=== PATIENT | male | born 1960 | race African-American/Black ===

== ENCOUNTER 2019-05-02 21:45 | Inpatient (IN) | payer OTHER ==
[~2019-05-02 21:45] MED LIST: Iopamidol 370 76% 100 ML VIAL ONE
[2019-05-02] MEDS ORDERED: Ondansetron PF 4 MG/2 ML Vial ONE (22:20)
[2019-05-02] MEDS ORDERED: Morphine 4 MG/ML VIAL ONE (22:20)
[2019-05-02 22:52] LABS: Hemoglobin 13.7 g/dL (14.0-18.0); Mean Corpuscular HGB CONC 31.6 g/dL (32.0-36.0); Mean Corpuscular Hemoglobin 25.6 pg (27.0-31.0); Mean Corpuscular Volume 81.1 fL (78.0-98.0); Mean Platelet Volume 7.9 fL (7.4-10.4); Platelet Count 232 thou/uL (130-400); RBC Distribution Width 12.2 % (11.5-14.5); Red Blood Cell (RBC) Count 5.35 mill/uL (4.70-6.10); White Blood Cell (WBC) Count 18.6 thou/uL (4.8-10.8)
[2019-05-02] MEDS ORDERED: Cefepime 2 GM VIAL ONE (23:04)
--- NOTE | 2019-05-02 23:10 | RAD ---
Chest AP view INDICATION: Sepsis and hypotension COMPARISON: July 12, 2016 FINDINGS: Lungs:Stable bibasilar linear opacities suspicious for persistent atelectasis and/or scarring. No con solidation demonstrated. Cardiac silhouette:The cardiomediastinal silhouette appears within normal limits. Pulmonary vasculature:Normal Pleural spaces:No pleural effusion or pneumothorax is demonstrated. Upper abdomen:Stable elevation the right hemidiaphragm. Osseous structures: No acute osseous abnormality. Additional findings:None. IMPRESSION: No acute cardiopulmonary abnormality.
[2019-05-02 23:11] LABS: Band 2 % (5-11); Eosinophils 4 % (0-10); Lymphocytes 7 % (21-51); MDiff Complete? YES; Monocytes 8 % (0-10); Neutrophil 79 % (42-75); Platelet Morphology Comment Appears Adequate; RBC Morphology Normal
[2019-05-02 23:12] LABS: Bilirubin Negative (Negative); Blood, Urine Negative (Negative); Clarity Clear (Clear); Glucose, Urine (Dipstick) Normal (Negative); Leukocyte 250 Leu/uL (Negative); Mucous/LPF Rare LPF (<2+); Nitrite Negative (Negative); Protein, Urine (Dipstick) 20 mg/dL (Neg-Trace); Renal Epithelial 0-3 HPF (None Seen); Squamous Epithelial 0-3 HPF (0-3); Urobilinogen 3 mg/dL (Less than 2)
[2019-05-02 23:14] LABS: ALT (SGPT) 33 U/L (8-55); AST (SGOT) 19 U/L (5-34); Albumin 3.1 g/dL (3.5-5.0); Alkaline Phosphatase 79 U/L (40-110); Anion Gap 12 mmol/L (10-20); BUN (Urea Nitrogen) 18 mg/dL (8.4-25.7); Bilirubin, Total 0.6 mg/dL (0.2-1.2); Calc. Creatinine Clearance 0 mL/min (70-130); Calcium 7.6 mg/dL (7.8-10.44); Carbon Dioxide 20 mmol/L (22-29); Chloride 107 mmol/L (98-107); Estimated GFR-MDRD 63; Glucose 96 mg/dL (70-105); Potassium 3.3 mmol/L (3.5-5.1); Protein, Total 6.1 g/dL (6.0-8.3); Sodium 136 mmol/L (136-145)
[2019-05-02 23:19] LABS: Bacteria/HPF Rare-Few HPF (None Seen)
[2019-05-02 23:20] LABS: White Blood Cell Cast 0-3 LPF (None Seen)
--- NOTE | 2019-05-02 23:51 | CT ---
CT OF THE ABDOMEN AND PELVIS WITH IV CONTRAST INDICATION: Evaluate for intra-abdominal abscess history of necrotizing fasciitis of the left aspect of his abdomen COMPARISON: None FINDINGS: ABDOMEN: Lung bases: There is bibasilar atelectasis, right greater than left. Liver: No focal lesion. Gallbladder: Mildly distended Pancreas: Normal. Adrenal glands: Normal. Spleen: Normal. Kidneys and ureters: Normal. No hydronephrosis. Vasculature: There are mild vascular calcifications seen involving the visualized vasculature. Lymph nodes:No lymphadenopathy. Free fluid in abdomen:No free fluid is evident. PELVIS: Small and large bowel: Colonic diverticulosis. Mild amount of retained stool within the colon. Small bowel is of normal caliber. Appendix:Normal Bladder: Mild wall thickening Rectal and perirectal soft tissues:Normal. Reproductive structures: Normal. Free fluid in pelvis: No free fluid is evident. Lymphadenopathy pelvis: No lymphadenopathy is evident. Osseous structures: No acute osseous abnormality. No destructive osteolytic or osteoblastic lesion i s identified. There is scattered degenerative and osteoarthritic changes. Soft tissues:There is skin thickening with reticulation overlying the hips bilaterally and along the posterior lateral aspect of the torso which is nonspecific. IMPRESSION: 1. No evidence of acute intra-abdominal abscess. 2. Nonspecific mild skin thickening and reticulation overlying the hips and posterior lateral aspect of the torso.
--- NOTE | 2019-05-03 01:01 | PDOC.FPRHP ---
- History of Present Illness Chief Complaint: Rash History of Present Illness: 59[facility] M pt [facility] with complaint of erythematous rash on abdomen and bilateral lower legs for 2 weeks. States he has also had fever, body aches, and chills. Hx of necrotizing fasciitis infection to left abdomen and inguinal region requiring surgical excision. Pt states he has already been on oral antibiotics although he cannot recall which abx with was. States that he had a short period of improvement after starting them but since finishing has had a worsening in his sx. Pt complains of fevers and chills throughout this period of time. - Allergies/Adverse Reactions Allergies Allergy/AdvReac Type Severity Reaction Status Date / Time aspirin Allergy Verified 05/03/19 03:25 clindamycin Allergy Nausea Verified 05/03/19 03:25 ibuprofen [From Motrin] Allergy Verified 05/03/19 03:25 Sulfa (Sulfonamide Allergy Hives Verified 05/03/19 03:25 Antibiotics) - Home Medications Medication Instructions Recorded Confirmed Type Clopidogrel Bisulfate [Plavix] 75 mg PO DAILY 05/03/19 05/03/19 History DULoxetine [Cymbalta] 30 mg PO BID 05/03/19 05/03/19 History diphenhydrAMINE [Benadryl] 50 mg PO BID 05/03/19 05/03/19 History risperiDONE [Risperdal] 1 tab PO DAILY 05/03/19 05/03/19 History - History PMHx: CHF, DM (diet controlled), Hep C, HTN, COPD, ANGLE, depression PSHx: Necrotizing fasciitis FHx: Non contributory Social: Pt has been an inmate for a number of years - Review of Systems General: reports: fever/chills. denies: weight/appetite/sleep changes Eyes: denies: vision changes, other ENT: denies: rhinorrhea, other Respiratory: reports: cough (chronic). denies: shortness of breath Cardiovascular: denies: chest pain, edema Gastrointestinal: denies: nausea, vomiting, diarrhea Skin: reports: rashes Musculoskeletal: reports: pain, swelling Neurological: denies: weakness, other Psychological: denies: depression, other - Vital signs BP: 91/57, Pulse: 106, Resp: 17, Pain: 6, O2 sat: 98 on Room Air - Physical Exam Constitutional: NAD, awake, alert and oriented, well developed HEENT: normocephalic and atraumatic, EOMI, grossly normal vision, grossly normal hearing, MMM Neck: supple, FROM Heart: normal S1/S2 -Heart: Tachycardic -Lungs: Diffuse mild expiratory wheezes, good air movement Abdomen: soft, bowel sounds present Neurological: no focal deficit, CN II-XII intact -Skin: Extensive erythematous rash to majority of pt's thorax extending to his lower extremities just below his knees. Areas of folliculitis with scattered draining pustules. Tender to touch. Heme/Lymphatic: no unusual bruising or bleeding, no purpura Psychiatric: normal mood and affect, intact recent and remote memory FMR H&P: Results - Labs Result Diagrams: 05/03/19 06:37 05/03/19 06:37 Lab results: WBC 18.6 thou/uL (4.8-10.8) H 05/02/19 22:44 Hgb 13.7 g/dL (14.0-18.0) L 05/02/19 22:44 Hct 43.4 % (42.0-52.0) 05/02/19 22:44 MCV 81.1 fL (78.0-98.0) 05/02/19 22:44 Plt Count 232 thou/uL (130-400) 05/02/19 22:44 Band Neuts % (Manual) 2 % (5-11) L 05/02/19 22:44 ESR Westergren 14 mm/hr (Less than 20) 05/02/19 22:44 Sodium 136 mmol/L (136-145) 05/02/19 22:44 Potassium 3.3 mmol/L (3.5-5.1) L 05/02/19 22:44 Chloride 107 mmol/L (98-107) 05/02/19 22:44 Carbon Dioxide 20 mmol/L (22-29) L 05/02/19 22:44 BUN 18 mg/dL (8.4-25.7) 05/02/19 22:44 Creatinine 1.39 mg/dL (0.7-1.3) H 05/02/19 22:44 Glucose 96 mg/dL (70-105) 05/02/19 22:44 Lactic Acid 2.7 mmol/L (0.5-2.2) H 05/02/19 22:44 Calcium 7.6 mg/dL (7.8-10.44) L 05/02/19 22:44 Total Bilirubin 0.6 mg/dL (0.2-1.2) 05/02/19 22:44 AST 19 U/L (5-34) 05/02/19 22:44 ALT 33 U/L (8-55) 05/02/19 22:44 Alkaline Phosphatase 79 U/L (40-110) 05/02/19 22:44 C-Reactive Protein 6.79 mg/dL (= or < 0.5) H 05/02/19 22:44 Serum Total Protein 6.1 g/dL (6.0-8.3) 05/02/19 22:44 Albumin 3.1 g/dL (3.5-5.0) L 05/02/19 22:44 Urine Ketones Negative mg/dL (Negative) 05/02/19 22:55 Urine Blood Negative (Negative) 05/02/19 22:55 Urine Nitrite Negative (Negative) 05/02/19 22:55 Ur Leukocyte Esterase 250 Flaca/uL (Negative) A 05/02/19 22:55 Urine RBC 7-10 HPF (0-3) A 05/02/19 22:55 Urine WBC 11-20 HPF (0-3) A 05/02/19 22:55 Ur Squamous Epith Cells 0-3 HPF (0-3) 05/02/19 22:55 Urine Bacteria Rare-Few HPF (None Seen) 05/02/19 22:55 FMR H&P: A/P - Problem List (1) COPD (chronic obstructive pulmonary disease) Current Visit: Yes Status: Acute (2) CHF (congestive heart failure) Current Visit: Yes Status: Acute Code(s): I50.9 - HEART FAILURE, UNSPECIFIED (3) Cellulitis Current Visit: Yes Status: Acute Code(s): L03.90 - CELLULITIS, UNSPECIFIED (4) Hx of necrotising fasciitis Current Visit: Yes Status: Acute Code(s): Z87.39 - PERSONAL HISTORY OF DISEASES OF THE MS SYS AND CONN TISS (5) Hypotension Current Visit: Yes Status: Acute (6) Sepsis Current Visit: Yes Status: Acute Code(s): A41.9 - SEPSIS, UNSPECIFIED ORGANISM - Plan Cellulitis w/ Sepsis- Hx of nec fasciitis - CT scan w/o signs of fluid collection or subq air - Received vanc and cefepime in ED - Transitioned to vanc and zosyn - 3L IVF in ED - WBC 18.6, Lact 2.7, continue to trend - Consider surgery consult Hypotension - Responsive to fluids in ED - Continue IVF resuscitation - Hold anti-hypertensives CHF - Reported hx - Will monitor w/ IVF COPD - Continue home regimen Diet: Regular IVF: LR @ 120 Dispo: Admit to medical inpt for IV abx. Expected LOS >48hr FMR H&P: Upper Level - Plan Date/Time: 05/03/19 0059 IWes MD, have evaluated this patient and agree with findings/plan as outlined by internal affairs commander resident. Pertinent changes/additions are listed here. Oneal Maher is a 59 year old M with a PMH of DM2, HTN, HLD, COPD and CHF who [facility] with a 2 week history of worsening redness, pain, and swelling to skin of bilateral flanks down bilateral extremities and perineum. Patient states that he was given an oral antibiotic close to the onset of symptoms and initially thought it was improving but since finishing the antibiotic about a week ago, his symptoms have worsened. He has developed drainage of purulent discharge from the perineum as well. He has had associated fevers and chills during the last several days. Upon admission to the ED, vitals were BP 92/54, RR 18, HR 103, T 98.1, O2 sat 99% on RA. Labs were significant for WBC count of 18.6 with left shift, Cr 1.39, Lactic acid of 2.7, CRP 6.7, ESR 14. CXR was negative, CT abd/pelv showed no abscess or subcutaneous air, mild thickening over hip and posterior aspect of torso. On exam, patient has TTP and erythema over bilateral flanks, down bilateral extremities, and the perineum but dried, purulent drainage in the perineum. No obvious crepitus. Admitting patient to inpatient medical floor for sepsis 2/2 cellulitis. LRINEC score of 1 makes necrotizing fasciitis less likely but still not completely ruled out, will consider general surgery consultation for evaluation in the morning. Consult wound care. Blood cultures pending. Patient's BPs have been stable since admission with MAPs greater than 65. Continue empiric antibiotics, Vancomycin and Zosyn to get addition anaerobic coverage. Anticipate hospital stay > 48 hours and d/c back to [facility] after admission. Please see internal affairs commander note above for full H&P, which I have reviewed and agree with. PCP: [facility] Call Code Status: Full Code VTE PPx: Lovenox
[2019-05-03] MEDS ORDERED: Fentanyl 100 MCG/2 ML VIAL ONE (02:17)
[2019-05-03] MEDS ORDERED: Ondansetron PF 4 MG/2 ML Vial IVP PRN (02:47)
[2019-05-03] MEDS ORDERED: Dextrose 50% Abboject 50 ML SYRINGE SLOW IVP PRN (02:47)
[2019-05-03] MEDS ORDERED: Dextrose 5% in Water 1,000 ML IV PRN (02:47)
[2019-05-03] MEDS: Lactated Ringer's 1,000 ML IV SCH ×3 (03:55→18:06)
[2019-05-03 05:48] LABS: Lactic Acid 6.1 mmol/L (0.5-2.2)
[2019-05-03] MEDS: Piperacillin/Tazobactam 4.5 GM in Sodium Chloride 0.9% 100 ML IVPB SCH ×3 (05:53→21:48)
[2019-05-03 05:56] LABS: BUN (Urea Nitrogen) 16 mg/dL (8.4-25.7); Calc. Creatinine Clearance 0 mL/min (70-130); Calcium 7.4 mg/dL (7.8-10.44); Carbon Dioxide 12 mmol/L (22-29); Estimated GFR-MDRD 74; Glucose 125 mg/dL (70-105)
[2019-05-03] MEDS ORDERED: Lactated Ringer's 500 ML IV SCH ×2 (06:00→23:00)
[2019-05-03] MEDS: Acetaminophen 325 MG TAB PO PRN ×3 (06:06→19:58)
[2019-05-03 06:51] LABS: Hemoglobin 13.8 g/dL (14.0-18.0); Mean Corpuscular HGB CONC 31.6 g/dL (32.0-36.0); Mean Corpuscular Hemoglobin 26.4 pg (27.0-31.0); Mean Corpuscular Volume 83.6 fL (78.0-98.0); Mean Platelet Volume 8.7 fL (7.4-10.4); Platelet Count 162 thou/uL (130-400); RBC Distribution Width 12.2 % (11.5-14.5); White Blood Cell (WBC) Count 21.7 thou/uL (4.8-10.8)
[2019-05-03 06:57] LABS: Chloride 107 mmol/L (98-107); Potassium 4.3 mmol/L (3.5-5.1)
[2019-05-03 06:58] LABS: Sodium 135 mmol/L (136-145)
[2019-05-03 07:00] LABS: Anion Gap 13 mmol/L (10-20)
[2019-05-03 07:02] LABS: Magnesium 1.6 mg/dL (1.6-2.6); Phosphorus 2.1 mg/dL (2.3-4.7)
[2019-05-03 07:59] LABS: Band 5 % (5-11); Eosinophils 4 % (0-10); Lymphocytes 7 % (21-51); MDiff Complete? YES; Monocytes 7 % (0-10); Neutrophil 76 % (42-75); Ovalocytes SLIGHT = 2-5 cells (100X) (0-1/hpf); Platelet Morphology Comment Appears Adequate; Polychromasia SLIGHT = 2-3 cells (100X) (0-2/hpf); Reactive Lymphocytes 1 % (0-10)
[2019-05-03] MEDS ORDERED: hydrOXYzine 25 MG TAB PO SCH (08:15)
[2019-05-03] MEDS: Enoxaparin Sodium 40 MG/0.4 ML SYRINGE SC SCH (08:22)
[2019-05-03] MEDS ORDERED: Heparin 1,000 UNITS/ML VIAL ONE (09:00)
[2019-05-03] MEDS: Vancomycin HCl 1.5 GM in Sodium Chloride 0.9% 250 ML 300 ML IVPB SCH ×2 (09:38→22:20)
[2019-05-03] MEDS ORDERED: Cefepime 2 GM in Sodium Chloride 0.9% 100 ML IVPB SCH (11:00)
[2019-05-03] MEDS ORDERED: hydrOXYzine 25 MG TAB PO PRN (11:17)
[2019-05-03] MEDS: HumaLOG 300 UNITS/3 ML VIAL SC PRN ×2 (11:25→18:48)
--- NOTE | 2019-05-03 11:27 | HP ---
I have examined the patient. I have discussed the case with Dr. Niraj Allred and agree with his assessment and plan. HISTORY OF PRESENT ILLNESS: Briefly, Mr. Maher is a pleasant 59-year-old incarcerated gentleman who was transferred [facility]. For 2 weeks, he has noticed some erythematous rash on both lower legs and abdomen. It was associated with fever, chills, and body aches. He has a remote history of necrotizing fasciitis of his left abdominal wall. He had been on oral antibiotics without much improvement. He presented to our ER for more advanced level of care. PHYSICAL EXAMINATION: GENERAL: His blood pressure is now 102/60, his pulse rate is 106, respirations 17, his room air O2 saturation is 98%. He had a temperature of 102.6. GENERAL: He is awake, alert, and states that he "is feeling much better." ENT: No erythema or exudate. NECK: Supple. CARDIAC: Heart rhythm regular. No gallop or murmur noted. LUNGS: Clear without rales or wheezes. ABDOMEN: Obese but flat, soft without guarding or rebound. He has a diffuse warm erythematous rash extending from the chest distally to his both lower extremities. It is warm to touch, erythematous, and appears to be a cellulitis. There is no focus of infection otherwise. NEUROLOGIC: He has no focal deficits. LABORATORY DATA: CBC; his initial white count was 18,600. It is now 21,700. His hemoglobin is 13.8 with hematocrit of 43.5. Chemistries; sodium 135, potassium 4.3, chloride 107, bicarb is 12, his BUN is 16, creatinine is 1.21. His lactic acid is elevated at 6.1. He has already received 3.5 L bolus to obtain his current blood pressure. He is on broad-spectrum antibiotics. ASSESSMENT: Sepsis secondary to cellulitis with hypotension and possible early septic shock. PLAN: As above. We gave fluids, antibiotics. Should his blood pressure drop again, we will transfer him to MICU for Levophed infusion. For now, we will continue to monitor him closely and administer broad-spectrum antibiotics as clinically he is improving. Job ID: [id number]
[2019-05-03 12:56] LABS: Syphilis Antibody Nonreactive (Nonreactive)
[2019-05-03 12:57] LABS: HIV (1/2) Antibody/Antigen Non-Reactive (NonReactive); HIV 1/2 INDEX 0.07 S/CO (<1.00)
[2019-05-03 13:04] LABS: Hep C IgG Ab Reflex HepC Qnt (NonReactive); Hep C Index 13.47 S/CO (0-0.79)
[2019-05-03] MEDS: traMADol HCl 50 MG TAB PO PRN ×3 (13:44→21:51)
[2019-05-03] MEDS: hydrOXYzine 25 MG TAB PO PRN ×3 (13:44→22:20)
[2019-05-03] MEDS: PHOS-NAK 1 PKT PACK PO SCH ×2 (18:02→23:57)
[2019-05-03] MEDS: DULoxetine 30 MG CAP PO SCH (19:57)
[2019-05-03] MEDS ORDERED: FLU VACC QS2019-20(6MOS UP)/PF 60 MCG/0.5 ML SYRINGE IM ONE (21:00)
[2019-05-03] MEDS ORDERED: Piperacillin/Tazobactam 4.5 GM in Sodium Chloride 0.9% 100 ML IVPB SCH (21:30)
[2019-05-04] MEDS: Lactated Ringer's 1,000 ML IV SCH ×3 (02:14→23:30)
[2019-05-04] MEDS: Piperacillin/Tazobactam 4.5 GM in Sodium Chloride 0.9% 100 ML IVPB SCH ×4 (03:53→23:30)
--- NOTE | 2019-05-04 07:57 | PDOC.FM ---
- Subjective Subjective: Doing well this morning. complains of being cold, having chills, and being short of breath. - Objective MAR Reviewed: Yes Vital Signs & Weight: Vital Signs (12 hours) Temp Pulse Resp BP Pulse Ox 05/04/19 07:28 99.9 F H 118 H 16 121/76 97 05/04/19 04:00 99.2 F 110 H 21 H 99/61 95 05/04/19 02:20 68 16 95 05/03/19 23:59 100.3 F H 120 H 24 H 119/67 92 L 05/03/19 22:40 102.5 F H 118 H 24 H 105/55 L 94 L 05/03/19 20:00 101.3 F H 114 H 22 H 100/60 92 L Weight Admit Weight 110.28 kg Weight 110.28 kg I&O: 05/03/19 05/04/19 05/05/19 06:59 06:59 05:59 Intake Total 3250 Output Total 2650 Balance 600 Result Diagrams: 05/04/19 07:32 05/04/19 07:32 Phys Exam - Physical Examination Constitutional: NAD HEENT: PERRLA, moist MMs Neck: supple, full ROM Diffuse wheezing throughout. Tight breath sounds. Cardiovascular: RRR, no significant murmur Gastrointestinal: soft, non-tender, no distention, positive bowel sounds Musculoskeletal: no edema, pulses present Neurological: non-focal, moves all 4 limbs Psychiatric: normal affect, A&O x 3 Skin: cap refill <2 seconds Deviation from normal: Significan cellulitis bilateral legs, thighs and groin. Scar from prior -: necrotizing fasciitis incision draining pus. Dx/Plan - Plan Plan: 59yo AAM with significant, diffuse cellulitis. Sepsis 2/2 diffuse cellulitis, has history of necrotizing fasciitis - CT scan w/o signs of fluid collection or subq air - Receiving Vanc and Zosyn - WBC 18.6 > 21.7 > 22.2 - Will consult surgery today. Appreciate recommendations. Hypotension, resolved - Responsive to fluids in ED - Continue IVF resuscitation - Hold anti-hypertensives. Has been normotensive, continue to hold CHF - Reported hx - Will monitor w/ IVF COPD - Continue home regimen - duonebs prn Diet: Regular IVF: LR @ 120 Dispo: Admit to medical inpt for IV abx. Expected LOS >48hr Addendum - Attending - Attending Attestation Date/Time: 05/04/19 1001 I personally evaluated the patient and discussed the management with Dr. Connolly I agree with the History, Examination, Assessment and Plan documented above with any addition or exceptions noted below. 2/2 culture positive patient with temp spike and chills agree with echocardiogram and exam marked inguinal peroneal intertrigo and purulent drainage from LLQ wound will need to consult surgery.
[2019-05-04] MEDS: traMADol HCl 50 MG TAB PO PRN ×4 (08:02→21:13)
[2019-05-04] MEDS: hydrOXYzine 25 MG TAB PO PRN ×4 (08:02→21:15)
[2019-05-04 08:07] LABS: Hemoglobin 12.6 g/dL (14.0-18.0); Mean Corpuscular HGB CONC 32.1 g/dL (32.0-36.0); Mean Corpuscular Hemoglobin 26.4 pg (27.0-31.0); Mean Corpuscular Volume 82.1 fL (78.0-98.0); Mean Platelet Volume 7.8 fL (7.4-10.4); Platelet Count 211 thou/uL (130-400); RBC Distribution Width 12.2 % (11.5-14.5); Red Blood Cell (RBC) Count 4.79 mill/uL (4.70-6.10); White Blood Cell (WBC) Count 22.2 thou/uL (4.8-10.8)
[2019-05-04 08:23] LABS: Vancomycin, Trough 13.7 ug/mL
[2019-05-04 08:24] LABS: ALT (SGPT) 26 U/L (8-55); AST (SGOT) 20 U/L (5-34); Albumin 2.6 g/dL (3.5-5.0); Alkaline Phosphatase 67 U/L (40-110); Anion Gap 9 mmol/L (10-20); BUN (Urea Nitrogen) 9 mg/dL (8.4-25.7); Bilirubin, Total 0.9 mg/dL (0.2-1.2); Calc. Creatinine Clearance 119 mL/min (70-130); Calcium 7.8 mg/dL (7.8-10.44); Carbon Dioxide 22 mmol/L (22-29); Chloride 108 mmol/L (98-107); Estimated GFR-MDRD 89; Globulin 2.7 g/dL (2.4-3.5); Glucose 111 mg/dL (70-105); Potassium 4.1 mmol/L (3.5-5.1); Protein, Total 5.3 g/dL (6.0-8.3); Sodium 135 mmol/L (136-145)
[2019-05-04 08:34] LABS: Phosphorus 1.9 mg/dL (2.3-4.7)
[2019-05-04 08:54] LABS: Band 1 % (5-11); Elliptocytes SLIGHT = 2-5 cells (100X) (0-1/hpf); Eosinophils 7 % (0-10); Large Platelets SLIGHT; Lymphocytes 4 % (21-51); MDiff Complete? YES; Monocytes 8 % (0-10); Neutrophil 79 % (42-75); Ovalocytes SLIGHT = 2-5 cells (100X) (0-1/hpf); Platelet Morphology Comment Appears Adequate; Polychromasia SLIGHT = 2-3 cells (100X) (0-2/hpf); Reactive Lymphocytes 1 % (0-10)
[2019-05-04] MEDS ORDERED: RISPERIDONE PO SCH (09:00)
[2019-05-04] MEDS: PHOS-NAK 1 PKT PACK PO SCH ×3 (09:06→21:13)
[2019-05-04] MEDS: DULoxetine 30 MG CAP PO SCH ×2 (09:06→21:13)
[2019-05-04] MEDS: Enoxaparin Sodium 40 MG/0.4 ML SYRINGE SC SCH (09:10)
[2019-05-04] MEDS: Vancomycin HCl 1.5 GM in Sodium Chloride 0.9% 250 ML 300 ML IVPB SCH (09:50)
[2019-05-04] MEDS: risperiDONE 1 MG TAB PO SCH (11:36)
[2019-05-04] MEDS: Acetaminophen 325 MG TAB PO PRN ×3 (12:23→21:13)
[2019-05-04] MEDS ORDERED: Sodium Chloride 0.9% 1,000 ML IV SCH (16:00)
[2019-05-04] MEDS: Nystatin Powder 15 GM BOT TOP SCH ×2 (16:22→21:16)
[2019-05-04] MEDS: Vancomycin HCl 1.75 GM in Sodium Chloride 0.9% 500 ML IVPB SCH (21:10)
[2019-05-04] MEDS: Cepastat Lozenges 1 LOZ PO PRN (21:13)
--- NOTE | 2019-05-04 21:14 | CON ---
DATE OF CONSULTATION: HISTORY OF PRESENT ILLNESS: Oneal Maher is a 59-year-old black male patient who has been incarcerated since July 2015. He has history of necrotizing fasciitis debrided in the past involving his left lower abdomen, left groin crease. The patient has been treated in the long term with antibiotics. He has been admitted by [facility] with cellulitis, both lower extremities. CAT scan of the abdomen and pelvis was unremarkable. The patient's white count is , hemoglobin 12. He has been in the hospital since 05/02/2019. Renal function is normal. BUN 9, creatinine 1.03, sodium 137. Blood cultures positive for GPC, 05/02/2019, 08/04, recent blood cultures negative. The patient is on vancomycin. I have been asked to see him regarding possibility of necrotizing fasciitis. When I examined him, he has scars in his lower abdomen consistent with previous debridements. He has scars in the left groin consistent with debridements. He has cellulitis from his groins to his lower legs, worse left than right. There is no blistering, no bullae, no fluctuance, no induration. Scrotum is normal. Perineum is normal. There is no evidence of any surgical problem. ALLERGIES: MULTIPLE, ASPIRIN, CLINDAMYCIN, IBUPROFEN. SOCIAL HISTORY: Prior to incarceration, he smoked more than half pack a day and drank more than a six-pack a day. Since incarceration, obviously no tobacco or alcohol intake. PREHOSPITALIZATION MEDICATIONS: 1. Risperdal. 2. Benadryl. 3. Cymbalta. 4. Plavix. PAST SURGICAL HISTORY: ORIF, left leg. PAST MEDICAL HISTORY: Depression, history of PAD, congestive heart failure by history. He does not recall ever having had a cardiac catheterization. He does not give a history of prior TX. Diabetes mellitus, diet controlled, hepatitis C, hypertension, COPD, sleep apnea, depression. PHYSICAL EXAMINATION: VITAL SIGNS: Height 5 feet 11 inches, 243 pounds, 33 BMI, temperature 99 degrees, pulse 110, blood pressure 127/75. HEAD, EARS, EYES, NOSE, AND THROAT: Unremarkable. LUNGS: Clear to auscultation. ABDOMEN: Obese, soft, nontender. Scars, lower abdomen, above his thigh crease and his pannus indicative of healed debridements. Left thigh crease and groin scars well healed. Cellulitis, lower legs to the groin crease, both legs. No fluctuance, no induration, no blistering, no bullae, no areas suspicious for an abscess. IMAGING: Echocardiogram, 70% to 75% ejection fraction, mild tricuspid regurgitation. ASSESSMENT AND PLAN: Cellulitis, both lower extremities. I have no explanation as cause. There is no indication for surgical intervention at this time. I will follow along with you. We would recommend infectious disease consult. . Job ID: [id number]
[2019-05-04] MEDS: HumaLOG 300 UNITS/3 ML VIAL SC PRN (21:17)
[2019-05-05] MEDS: Acetaminophen 325 MG TAB PO PRN ×3 (01:52→20:20)
[2019-05-05] MEDS: traMADol HCl 50 MG TAB PO PRN ×2 (01:52→16:03)
[2019-05-05] MEDS: Cepastat Lozenges 1 LOZ PO PRN (01:53)
[2019-05-05] MEDS: Piperacillin/Tazobactam 4.5 GM in Sodium Chloride 0.9% 100 ML IVPB SCH ×4 (04:19→22:51)
--- NOTE | 2019-05-05 06:18 | PDOC.FM ---
- Subjective Subjective: Patient feels about the same as yesterday, he states he feels like "crap". He endorses muscle tenderness and generalized aches. - Objective MAR Reviewed: Yes Vital Signs & Weight: Vital Signs (12 hours) Temp Pulse Resp BP Pulse Ox 05/05/19 04:00 98.6 F 111 H 21 H 128/72 94 L 05/05/19 00:00 100.0 F H 110 H 21 H 104/60 93 L 05/04/19 20:00 99.0 F 109 H 21 H 112/67 96 Weight Admit Weight 110.28 kg Weight 110.28 kg I&O: 05/03/19 05/04/19 05/05/19 06:59 06:59 05:59 Intake Total 3250 3900 Output Total 2650 2850 Balance 600 1050 Result Diagrams: 05/05/19 05:42 05/05/19 05:42 Phys Exam - Physical Examination Constitutional: NAD HEENT: PERRLA, moist MMs, sclera anicteric Neck: supple, full ROM Respiratory: wheezing present Significan wheezing throughout. Cardiovascular: RRR, no significant murmur, no rub Gastrointestinal: soft, non-tender, no distention, positive bowel sounds Musculoskeletal: pulses present Neurological: normal sensation, moves all 4 limbs Psychiatric: normal affect, A&O x 3 Deviation from normal: Significant cellulitis BLE and groin. Dx/Plan - Plan Plan: 59yo AAM with significant, diffuse cellulitis. Sepsis 2/2 diffuse cellulitis, has history of necrotizing fasciitis - CT scan w/o signs of fluid collection or subq air - Receiving Vanc and Zosyn. No significant improvement. Will transition to Linezolid and consult ID today. - WBC 18.6 > 21.7 > 22.2 > 21.5 - Gen Surg consulted, no need for surgical intervention at this time. Hypotension, intermittent - Responsive to fluids - Continue IVF resuscitation - Hold anti-hypertensives. CHF, reported - ECHO 05/04/19 showed EF 70-75%. LV hyperdynamic. - Will monitor fluid status. COPD - Continue home regimen - DuoNebs scheduled for respiratory status. Diet: Regular IVF: LR @ 120 Dispo: Admit to medical inpt for IV abx. Expected LOS >48hr Addendum - Attending - Attending Attestation Date/Time: 05/05/191806 I personally evaluated the patient and discussed the management with Dr. Connolly I agree with the History, Examination, Assessment and Plan documented above with any addition or exceptions noted below. Consultation with Infectious Disease patient not significantly improving. Echocardiogram pending add po diflucan for imroved coverage intertrigo.
[2019-05-05 07:09] LABS: Band 3 % (5-11); Eosinophils 2 % (0-10); Hemoglobin 11.7 g/dL (14.0-18.0); Hypochromia SLIGHT = 6-15 cells (100X) (0-5/hpf); Lymphocytes 8 % (21-51); MDiff Complete? YES; Mean Corpuscular HGB CONC 31.9 g/dL (32.0-36.0); Mean Corpuscular Hemoglobin 25.9 pg (27.0-31.0); Mean Corpuscular Volume 81.3 fL (78.0-98.0); Mean Platelet Volume 8.6 fL (7.4-10.4); Monocytes 2 % (0-10); Neutrophil 85 % (42-75); Platelet Count 208 thou/uL (130-400); Platelet Morphology Comment Appears Adequate; RBC Distribution Width 12.2 % (11.5-14.5); Red Blood Cell (RBC) Count 4.53 mill/uL (4.70-6.10); White Blood Cell (WBC) Count 21.5 thou/uL (4.8-10.8)
[2019-05-05 07:10] LABS: ALT (SGPT) 23 U/L (8-55); AST (SGOT) 18 U/L (5-34); Albumin 2.5 g/dL (3.5-5.0); Alkaline Phosphatase 84 U/L (40-110); Anion Gap 12 mmol/L (10-20); BUN (Urea Nitrogen) 7 mg/dL (8.4-25.7); Bilirubin, Total 0.7 mg/dL (0.2-1.2); Calc. Creatinine Clearance 141 mL/min (70-130); Calcium 7.7 mg/dL (7.8-10.44); Carbon Dioxide 20 mmol/L (22-29); Chloride 107 mmol/L (98-107); Estimated GFR-MDRD Greater than 90; Globulin 2.6 g/dL (2.4-3.5); Glucose 96 mg/dL (70-105); Potassium 4.2 mmol/L (3.5-5.1); Protein, Total 5.1 g/dL (6.0-8.3); Sodium 135 mmol/L (136-145)
[2019-05-05] MEDS: Lactated Ringer's 1,000 ML IV SCH ×4 (08:32→20:13)
[2019-05-05] MEDS: Vancomycin HCl 1.75 GM in Sodium Chloride 0.9% 500 ML IVPB SCH ×2 (08:34→20:14)
[2019-05-05] MEDS: DULoxetine 30 MG CAP PO SCH ×2 (08:41→20:20)
[2019-05-05] MEDS: PHOS-NAK 1 PKT PACK PO SCH ×3 (08:41→20:20)
[2019-05-05] MEDS: Enoxaparin Sodium 40 MG/0.4 ML SYRINGE SC SCH (08:41)
[2019-05-05] MEDS: risperiDONE 1 MG TAB PO SCH (08:41)
[2019-05-05] MEDS: Nystatin Powder 15 GM BOT TOP SCH ×3 (08:49→20:20)
[2019-05-05] MEDS ORDERED: Fluconazole 100 MG TAB PO SCH (10:45)
--- NOTE | 2019-05-05 22:29 | PRG ---
DATE OF SERVICE: 05/05/2019 SUBJECTIVE: Mr. Maher is doing well. He had a fever to 102 degrees today. He was 99 degrees otherwise. Heart rate 106, respiratory rate 20. White count 34400, hemoglobin 11.7. Basic metabolic profile unremarkable. Reexam reveals that his cellulitis is unchanged. There is no obvious bullae, blisters, or induration areas. He has cellulitis, worse on the left leg than right, but there is nothing surgical to drain. Infectious Disease consult has been submitted and pending. We could consider CAT scan of the lower extremities, if the pain do not improve. We will await infectious disease consultation. Job ID: [id number]
[2019-05-06] MEDS: Piperacillin/Tazobactam 4.5 GM in Sodium Chloride 0.9% 100 ML IVPB SCH ×2 (04:04→09:00)
[2019-05-06] MEDS: traMADol HCl 50 MG TAB PO PRN ×2 (04:08→14:18)
[2019-05-06] MEDS: hydrOXYzine 25 MG TAB PO PRN ×2 (04:08→14:22)
[2019-05-06] MEDS: Cepastat Lozenges 1 LOZ PO PRN ×2 (05:20→08:06)
--- NOTE | 2019-05-06 05:26 | PDOC.FM ---
- Subjective Subjective: Patient is doing well this morning. Reports his legs and groin are still somewhat painful though he was able to sleep last night. Discussed that we're working with ID to establish a good abx regimen for him. Patient agreeable with current plan of care. - Objective Vital Signs & Weight: Vital Signs (12 hours) Temp Pulse Resp BP Pulse Ox 05/06/19 02:40 114 H 22 H 96 05/05/19 22:08 99.7 F H 05/05/19 20:18 110 H 96 05/05/19 20:00 99.0 F 114 H 18 124/64 96 05/05/19 19:00 100.2 F H 19 104/66 96 05/05/19 18:59 124 H 22 H 98 Weight Admit Weight 110.28 kg Weight 110.28 kg I&O: 05/04/19 05/05/19 05/06/19 07:59 06:59 06:59 Intake Total Output Total 1715 Balance -1715 Result Diagrams: 05/06/19 06:00 05/06/19 06:00 Phys Exam - Physical Examination Constitutional: NAD HEENT: moist MMs Neck: supple, full ROM Respiratory: no rales, no rhonchi wheezing throughout Cardiovascular: RRR, no significant murmur Gastrointestinal: soft, non-tender Musculoskeletal: no edema, pulses present Neurological: normal sensation, moves all 4 limbs Psychiatric: normal affect, A&O x 3 Skin: normal turgor Deviation from normal: cellulitis of both thighs and groin Dx/Plan (1) CHF (congestive heart failure) Code(s): I50.9 - HEART FAILURE, UNSPECIFIED Status: Acute (2) COPD (chronic obstructive pulmonary disease) Status: Acute (3) Cellulitis Code(s): L03.90 - CELLULITIS, UNSPECIFIED Status: Acute (4) Hx of necrotising fasciitis Code(s): Z87.39 - PERSONAL HISTORY OF DISEASES OF THE MS SYS AND CONN TISS Status: Acute (5) Hypotension Status: Acute (6) Sepsis Code(s): A41.9 - SEPSIS, UNSPECIFIED ORGANISM Status: Acute (7) Hepatitis C antibody test positive Code(s): R76.8 - OTHER SPECIFIED ABNORMAL IMMUNOLOGICAL FINDINGS IN SERUM Status: Acute - Plan Plan: 59yM admitted for cellulitis. #Sepsis 2/2 diffuse cellulitis, has history of necrotizing fasciitis - CT scan w/o signs of fluid collection or subq air - Receiving Vanc, Zosyn with no significant improvement. Fluconazole added 05/05 - WBC 18.6 > 21.7 > 22.2 > 21.5 > 19.7 - ID consulted 05/05, appreciate recs - Gen Surg consulted, no need for surgical intervention at this time, waiting for ID recs #Hypotension, intermittent - stable overnight and this am - Responsive to fluids - Continue IVF resuscitation - Hold anti-hypertensives. #CHF, reported - ECHO 05/04/19: EF 70-75%. LV hyperdynamic. - Continue to monitor fluid status. #COPD - Continue home regimen - DuoNebs scheduled for respiratory status. #Hep C + -quant pending Diet: Regular IVF: LR @ 140 Dispo: Admit to medical inpt for IV abx. Expected LOS >48hr
[2019-05-06] MEDS: Lactated Ringer's 1,000 ML IV SCH ×6 (05:46→23:45)
[2019-05-06 06:16] LABS: #Lymphocytes 3.7 thou/uL (1.20-3.40); #Monocytes 1.9 thou/uL (0.11-0.59); #Neutrophils 13.2 thou/uL (1.40-6.50); %Basophils 0.1 % (0.0-1.0); %Eosinophils 4.9 % (0.0-10.0); %Lymphocytes 18.5 % (21.0-51.0); %Monocytes 9.6 % (0.0-10.0); Mean Corpuscular HGB CONC 31.9 g/dL (32.0-36.0); Mean Corpuscular Hemoglobin 26.1 pg (27.0-31.0); Mean Corpuscular Volume 81.9 fL (78.0-98.0); Mean Platelet Volume 7.8 fL (7.4-10.4); Platelet Count 221 thou/uL (130-400); RBC Distribution Width 12.2 % (11.5-14.5); Red Blood Cell (RBC) Count 4.57 mill/uL (4.70-6.10); White Blood Cell (WBC) Count 19.7 thou/uL (4.8-10.8)
[2019-05-06 06:28] LABS: ALT (SGPT) 22 U/L (8-55); AST (SGOT) 17 U/L (5-34); Albumin 2.4 g/dL (3.5-5.0); Alkaline Phosphatase 62 U/L (40-110); Anion Gap 11 mmol/L (10-20); BUN (Urea Nitrogen) 7 mg/dL (8.4-25.7); Bilirubin, Total 0.8 mg/dL (0.2-1.2); Calc. Creatinine Clearance 136 mL/min (70-130); Calcium 7.6 mg/dL (7.8-10.44); Carbon Dioxide 23 mmol/L (22-29); Chloride 105 mmol/L (98-107); Estimated GFR-MDRD Greater than 90; Globulin 2.7 g/dL (2.4-3.5); Glucose 114 mg/dL (70-105); Protein, Total 5.1 g/dL (6.0-8.3); Sodium 135 mmol/L (136-145)
[2019-05-06] MEDS: Acetaminophen 325 MG TAB PO PRN ×3 (08:00→20:49)
[2019-05-06] MEDS: PHOS-NAK 1 PKT PACK PO SCH ×3 (08:00→20:50)
[2019-05-06] MEDS: risperiDONE 1 MG TAB PO SCH (08:00)
[2019-05-06] MEDS: Nystatin Powder 15 GM BOT TOP SCH ×3 (08:01→20:50)
[2019-05-06] MEDS: Fluconazole 100 MG TAB PO SCH (08:01)
[2019-05-06] MEDS: DULoxetine 30 MG CAP PO SCH ×2 (08:01→20:49)
[2019-05-06] MEDS: Enoxaparin Sodium 40 MG/0.4 ML SYRINGE SC SCH (08:01)
[2019-05-06] MEDS ORDERED: Lactated Ringer's 1,000 ML IV SCH (09:45)
[2019-05-06 09:55] LABS: Vancomycin, Trough 15.4 ug/mL
[2019-05-06] MEDS: Vancomycin HCl 1.75 GM in Sodium Chloride 0.9% 500 ML IVPB SCH (11:09)
[2019-05-06] MEDS ORDERED: Vancomycin HCl 1.75 GM in Sodium Chloride 0.9% 500 ML IVPB SCH (12:00)
[2019-05-06] MEDS ORDERED: Gadobenate Dimeglumine 529 MG/1 ML (20ML VIAL) ONE (12:00)
[2019-05-06] MEDS ORDERED: ISOVUE-370 76%-LOCM 1 ML ONE (12:00)
[2019-05-06 12:42] LABS: Syphilis Antibody Nonreactive (Nonreactive); Syphilis Antibody Index 0.08 S/CO (<1.00 Non-Reactive)
[2019-05-06 12:44] LABS: HBCM Index 0.06 S/CO (0-0.79); HBSAg Index 0.21 S/CO (0-0.99); HIV (1/2) Antibody/Antigen Non-Reactive (NonReactive); HIV 1/2 INDEX 0.09 S/CO (<1.00); Hep B Surf Ag Non-Reactive S/CO (NonReactive); Hepatitis B Core IgM Abs Non-Reactive (NonReactive)
--- NOTE | 2019-05-06 13:38 | CT ---
CT ABDOMEN AND PELVIS WITH IV CONTRAST 05/06/2019 CLINICAL INFORMATION: Increasing fever on antibiotics. Redness of the skin. Possible abscess collection. COMPARISON: 05/02/2019. Technique: Multiple contiguous axial CT images are obtained through the abdomen and pelvis with IV contrast. Cor onal reformatted images are provided. FINDINGS: Lower Chest: A tiny right pleural effusion is present. There is consolidation at the right lung base likely related to volume loss. There is persistent elevation of the right hemidiaphragm. A tiny left pleural effusion and atelectasis is again present. Vessels: Minimal vascular calcifications are seen in the abdominal aorta as well as involving the rosy ac arteries. Abdomen: Portal vein:Patent Gallbladder: Within normal limits for CT imaging. Liver: within normal limits. Spleen: within normal limits. Pancreas: within normal limits. Adrenals: within normal limits. Kidneys: Subcentimeter too small to characterize hypodense lesion is noted in the superior pole right kidney. Mild scarring is present involving the left kidney. Kidneys otherwise have a normal CT appearance. Bowel: Small to moderate amount of retained fecal material is seen throughout the colon. Loops of sma ll bowel are normal in caliber. Appendix: The appendix is visualized and normal in caliber. Peritoneum: No ascites or free air; no fluid collection. Mesentery and Retroperitoneum: There appears to be a mild increase in number of para-aortic lymph nod es; this is a nonspecific finding and unchanged from the prior study. No enlarged lymph nodes are seen. Abdominal Wall: There is subcutaneous edema seen about the abdomen and pelvis predominantly laterally and much greater on the right. A defined fluid collection to suggest an abscess is not seen. There is a fat-containing left inguinal canal. Pelvis: Reproductive Organs: No pelvic masses. Pelvis within normal limits. Bladder: Decompressed but otherwise grossly normal in appearance and unchanged from prior study. Bones: Multilevel degenerative changes are again seen throughout the visualized lower thoracic spine as well as involving the lower lumbar spine. IMPRESSION: 1. Increase in subcutaneous edema about the abdomen and pelvis bilaterally and greater on the right. Portion of the right lateral abdomen is excluded from view, but no defined fluid collection is seen in the subcutaneous soft tissues to suggest an abscess. No intra-abdominal fluid collection is seen. 2. Tiny bilateral pleural effusions and associated passive atelectasis. There is persistent elevation right hemidiaphragm. 3. Subcentimeter too small to characterize hypodense lesion superior pole right kidney. 4. Constipation.
[2019-05-06] MEDS: CEFAZOLIN 2 GM in Premix Bag 1 BAG IVPB SCH ×2 (13:51→20:52)
[2019-05-06] MEDS ORDERED: Lorazepam 1 MG TAB PO PRN (15:14)
--- NOTE | 2019-05-06 15:15 | PRG ---
DATE OF SERVICE: 05/06/2019 Mr. Maher is still running fever to 102.7 and states that he "feels worse." We have consulted Dr. Maria and would appreciate his input. Given the spike in fever, I think we need to rule out a soft tissue abscess by repeating a soft tissue CT of the thorax. This will be ordered while we continue with broad-spectrum antibiotics, but pending any changes per Infectious Disease. Job ID: [id number]
--- NOTE | 2019-05-06 16:26 | CON ---
DATE OF CONSULTATION: 05/06/2019 REASON FOR CONSULTATION: Skin changes and bacteremia. HISTORY OF PRESENT ILLNESS: A 59-year-old with history of type 2 diabetes; chronic hepatitis C, not yet treated; prior episodes of soft tissue infection in the groin area, which led to necrotizing fasciitis and the need for surgical debridement in the past; neurogenic bladder or neuro-myogenic bladder, not clear what the specific diagnosis is, that has led to the requirement for in and out catheterization 4-6 times a day for the past few years, who is an inmate at [facility] and has been unwell for the past 2 weeks approximately with worsening skin eruption in lower extremities and lower abdomen, associated with pain, arthralgias, fever, and chills. The patient was brought in. Initial BP was 91/57, pulse 106, respirations 17, and temperature 102.3. The patient has been started on Zosyn and vancomycin and have 1/2 sets of blood cultures with methicillin-sensitive Staph aureus. Currently, Mr. Maher is awake, appears in some distress from pain in lower extremities. He denies headaches. No visual symptoms, sore throat, or dysphagia. Maybe a little bit of odynophagia in posterior oropharynx since admission. He has chronic low back pain, which is more intense lately, with mild dyspnea. No chest pain. No abdominal pain. He does not have a sensation of full bladder at this time. He was just recently catheterized. He has pain in all the joints of his body, mostly in the lower extremity joints, particularly in the right hip, both knees and ankles, but also in the wrists. He has had no diarrhea. He again voiding, requires in and out catheterization. PAST MEDICAL HISTORY: 1. Chronic hepatitis C, untreated. 2. Cardiomyopathy. 3. Type 2 diabetes. 4. Hypertension. 5. COPD. 6. Obstructive sleep apnea. 7. Prior episode of necrotizing fasciitis in the groin region. 8. Neurogenic myogenic bladder with urinary retention, requiring in and out catheterization. FAMILY HISTORY: Noncontributory. SOCIAL HISTORY: He has been an inmate at [facility] for many years. CURRENT MEDICATIONS: 1. Zosyn. 2. Vancomycin. 3. DuoNeb. 4. Cymbalta. 5. Lovenox. 6. Diflucan. 7. Glucagon. 8. Atarax. 9. Insulin. PHYSICAL EXAMINATION: VITAL SIGNS: T-max 102.7, BP 117/71, pulse 114, respirations 22, and O2 saturation 96%. SKIN: The patient has erythroderma in the lower extremities with some exfoliation. There is intertriginous maceration, but not much in the right and left groins. No obvious area of abscess formation. The patient has a peripheral IV access. No lymphadenopathy. There is exfoliation of the skin of the scalp. HEENT: Ocular movements are conjugate. Sclerae white. Pupils are equal. Conjunctivae normal. Oral cavity with possible oral candidiasis in the posterior oropharynx. Still quite a few teeth in place with quite a bit of decay and gum disease. NECK: Supple. No jugular vein distention or carotid bruits. No thyromegaly. LUNGS: Symmetric air entry with a few expiratory wheezing noted. HEART: S1 and S2. Regular rate without murmurs. No S3 or S4. ABDOMEN: Soft, not distended or tender. No ascites. No bladder distention at this moment. EXTREMITIES: No obvious area of joint inflammatory activity, although he does have tenderness in multiple joints. The patient has plaques of hyperkeratosis with exfoliation, but he denies ever having had a diagnosis of psoriasis. NEUROLOGIC: He is awake, oriented, follows commands. Moves extremities, but is diffusely weak. His speech appears to be normal. Recollection normal. LABORATORY DATA: White cell count was 18.6, went up to 22, and now is 19.7; hemoglobin 13; MCV 81; platelets 232 with 72% neutrophils and 2% bands. Sedimentation rate was 14. Chemistry with sodium 135 and creatinine 0.9. Liver profile normal. Albumin 2.4. CRP was 6.79. Urinalysis with 11-20 wbc's, negative protein. Vancomycin trough was 15. HIV was nonreactive. We will have one set of blood cultures with Staph aureus. Repeat 2 sets, no growth at 48 hours. IMAGING STUDIES: An echocardiogram with EF 75%. Other findings are not particularly remarkable. There is an abdomen and pelvis CT from 05/02 with no acute intra-abdominal process. Some skin changes with inflammatory changes in the lower extremities bilaterally. Mild urinary bladder wall thickening. Some diverticulosis. Chest x-ray with no acute cardiopulmonary abnormality noted. ASSESSMENT AND PLAN: 1. Chronic hepatitis C, untreated. 2. Type 2 diabetes. 3. Neuro-myogenic bladder, requiring in and out catheterization. 4. Chronic low back pain with worsening lately. 5. 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 6. Polyarthralgia. 7. Staphylococcus aureus bacteremia. DISCUSSION: The differential diagnosis includes cellulitis with Staph aureus bacteremia, typically Staphylococcus aureus will always be associated with the area of abscess formation somewhere in the soft tissue. In this case, this is not yet obvious, but we will continue to have to be monitored for. The skin changes could reflect to the toxin producing capabilities of Staphylococcus aureus with formation of epidermolytic toxin, causing the exfoliation noted in the erythroderma. This is equivalent to the toxic shock like toxin that one season toxic shock syndrome. The other area of concern would be any of the involved joints with pain at this moment, he may develop overt inflammatory changes in the future when he particularly concerned with the hips, the lower back area, the knees, and wrists. We will switch him to oxacillin IV for the time being and then transition to cefazolin when he thinks under better control or could start right off to back with cefazolin since they seem to be equally effective. He does not meet criteria for short treatment duration and I would advise at least 4 weeks of treatment, may need a longer duration of treatment depending on the results of the final workup. For example, if there is evidence of spinal involvement, then the treatment would have to be prolonged to at least 6 weeks. He will necessarily need a PICC line insertion with the treatment to be arranged probably in the one of the TDC units when he gets more clinically stable. I do not see any evidence of lung involvement at this time, but he will be at risk for septic involvement with hematogenous pneumonia. Endocarditis does not seem to be likely since typically patients with endocarditis have a continues bacteremia and both sets of blood cultures are typically positive. Job ID: [id number]
[2019-05-06 16:42] LABS: HBSAB Concentration 8.44 mIU/mL; Hep B Surf AB EQUIVOCAL (NonReactive)
[2019-05-07] MEDS: CEFAZOLIN 2 GM in Premix Bag 1 BAG IVPB SCH ×3 (05:05→20:17)
--- NOTE | 2019-05-07 05:19 | PDOC.FM ---
- Subjective Subjective: Patient doing okay this morning. Reports that his lower extremities are still painful, is concerned that the skin has started to peel in places. Discussed that he is scheduled to have a PICC line placed for abx therapy and that we are still working with ID and surgery, patient agreeable to current plan of care. - Objective Vital Signs & Weight: Vital Signs (12 hours) Temp Pulse Resp BP Pulse Ox 05/07/19 05:00 98.6 F 109 H 18 124/66 93 L 05/07/19 02:15 110 H 20 96 05/07/19 00:04 100.2 F H 115 H 18 133/73 94 L 05/06/19 21:59 115 H 20 98 05/06/19 21:45 99.9 F H 05/06/19 20:00 93 L 05/06/19 19:00 100.8 F H 113 H 18 107/68 93 L 05/06/19 18:16 99.6 F 05/06/19 18:08 112 H 20 98 Weight Admit Weight 110.28 kg Weight 110.28 kg I&O: 05/05/19 05/06/19 05/07/19 06:59 06:59 06:59 Intake Total 3169 3354 Output Total 2056 1850 Balance 1113 1504 Result Diagrams: 05/08/19 05:02 05/08/19 05:02 Phys Exam - Physical Examination Constitutional: NAD HEENT: moist MMs, sclera anicteric Neck: supple, full ROM wheezing throughout all lung queen Cardiovascular: RRR, no significant murmur Gastrointestinal: soft, non-tender Musculoskeletal: pulses present 1+ edema BLE Neurological: moves all 4 limbs Psychiatric: normal affect, A&O x 3 Deviation from normal: cellulitis present BLE, some skin peeling in places though not diffuse Dx/Plan (1) CHF (congestive heart failure) Code(s): I50.9 - HEART FAILURE, UNSPECIFIED Status: Acute (2) COPD (chronic obstructive pulmonary disease) Status: Acute (3) Cellulitis Code(s): L03.90 - CELLULITIS, UNSPECIFIED Status: Acute (4) Hx of necrotising fasciitis Code(s): Z87.39 - PERSONAL HISTORY OF DISEASES OF THE MS SYS AND CONN TISS Status: Acute (5) Hypotension Status: Acute (6) Sepsis Code(s): A41.9 - SEPSIS, UNSPECIFIED ORGANISM Status: Acute (7) Hepatitis C antibody test positive Code(s): R76.8 - OTHER SPECIFIED ABNORMAL IMMUNOLOGICAL FINDINGS IN SERUM Status: Acute - Plan Plan: 59yM admitted for BLE cellulitis. #Sepsis 2/2 diffuse cellulitis with possible staph aureus bacteremia, has history of necrotizing fasciitis - CT scan w/o signs of fluid collection or subq air, repeat CT scan 05/06 demonstrated increase in subcutaneous edema with no forming abscess appreciable , small bilateral pleural effusions and atelectasis noted -incentive spirometry ordered - Transitioned to cefazolin from Vanc, Zosyn 05/[address] Maria recs, Fluconazole added 05/05; continue - Order placed by Dr. Maria for patient to get a PICC line as patient will need prolonged abx treatment - Lumbar MRI read pending to demonstrate spinal involvement of the infection - WBC 18.6 > 21.7 > 22.2 > 21.5 > 19.7 > 19.7 - 05/02 blood cultures: 1/2 positive for methacillin sensitive staph, 1/2 positive for coag neg staph - 05/03 blood cultures: both negative to date - ID consulted 05/05, appreciate recs - Gen Surg consulted, appreciate recs #Hypotension, intermittent - stable overnight and this am - Responsive to fluids - Continue IVF resuscitation - Hold anti-hypertensives. #CHF, reported - ECHO 05/04/19: EF 70-75%. LV hyperdynamic. - Continue to monitor fluid status. #COPD - Continue home regimen - DuoNebs scheduled for respiratory status. - incentive spirometry #Hep C + -quant pending #Anemia -13.8 on admission, 10.7 today -patient received fluid bolus 05/06 and has been receiving fluids, likely dilutional -will continue to monitor Diet: Regular IVF: LR @ 140 Dispo: Admitted to medical inpt for IV abx. Expected LOS >48hr Addendum - Attending - Attending Attestation Date/Time: 05/08/19 [id number] I personally evaluated the patient and discussed the management with Dr. Casillas on 05/07/2019 I agree with the History, Examination, Assessment and Plan documented above with any addition or exceptions noted below - Patient denies any complaints except some pain in legs. Afebrile VSS. A/P: 1) Sepsis secondary to cellulitis with Staph aureus bacteremia - Continue IV abx as per ID; plan for PICC line today. 2) DM- BG stable; continue current meds, 3) HTN- stable; continue current meds
[2019-05-07 06:20] LABS: ALT (SGPT) 18 U/L (8-55); AST (SGOT) 21 U/L (5-34); Albumin 2.3 g/dL (3.5-5.0); Alkaline Phosphatase 50 U/L (40-110); Anion Gap 12 mmol/L (10-20); BUN (Urea Nitrogen) 7 mg/dL (8.4-25.7); Bilirubin, Total 0.5 mg/dL (0.2-1.2); Calc. Creatinine Clearance 151 mL/min (70-130); Calcium 7.6 mg/dL (7.8-10.44); Carbon Dioxide 22 mmol/L (22-29); Chloride 104 mmol/L (98-107); Estimated GFR-MDRD Greater than 90; Globulin 2.6 g/dL (2.4-3.5); Glucose 123 mg/dL (70-105); Potassium 3.7 mmol/L (3.5-5.1); Protein, Total 4.9 g/dL (6.0-8.3); Sodium 134 mmol/L (136-145)
[2019-05-07 06:34] LABS: Hemoglobin 10.7 g/dL (14.0-18.0); Mean Corpuscular HGB CONC 30.9 g/dL (32.0-36.0); Mean Corpuscular Hemoglobin 24.9 pg (27.0-31.0); Mean Corpuscular Volume 80.5 fL (78.0-98.0); Mean Platelet Volume 7.7 fL (7.4-10.4); Platelet Count 217 thou/uL (130-400); RBC Distribution Width 12.2 % (11.5-14.5); Red Blood Cell (RBC) Count 4.31 mill/uL (4.70-6.10); White Blood Cell (WBC) Count 19.7 thou/uL (4.8-10.8)
[2019-05-07 06:35] LABS: Band 4 % (5-11); Eosinophils 1 % (0-10); Hypochromia SLIGHT = 6-15 cells (100X) (0-5/hpf); Lymphocytes 15 % (21-51); MDiff Complete? YES; Monocytes 2 % (0-10); Neutrophil 78 % (42-75); Platelet Morphology Comment Appears Adequate
[2019-05-07] MEDS: traMADol HCl 50 MG TAB PO PRN ×2 (06:45→20:16)
--- NOTE | 2019-05-07 08:11 | MRI ---
MR the lumbar spine with and without contrast INDICATION: Worsening low back pain and history of bacteremia COMPARISON: None. TECHNIQUE: Multiplanar multisequence MR images were obtained of lumbar spine with and without IV cont rast. Contrast: 20 cc of MultiHance. FINDINGS: Motion artifact heavily degrades image detail. Bone marrow: Within normal limits Distal spinal cord and conus: Normal. Conus is seen to terminate at the L1-L2 level. Visualized retroperitoneum and paraspinal soft tissues: Normal. No lymphadenopathy demonstrated. Vertebral levels: L5-S1: There is a broad-based disc bulge with facet osteoarthritic change inducing mild central canal narrowing with moderate bilateral neural foraminal narrowing L4-5: There is a broad-based disc bulge, facet hypertrophy, ligamentum flavum hypertrophy and grade 1 anterolisthesis inducing severe central canal narrowing with the moderate to severe left and moderate right neural foraminal narrowing. L3-4: There is a broad-based disc bulge with facet hypertrophy inducing mild central canal narrowing mild bilateral neural foraminal narrowing. L2-3: No appreciable central canal or neuroforaminal narrowing. L1-L2: No appreciable central canal or neuroforaminal narrowing. T12-L1: No appreciable central canal or neuroforaminal narrowing. Postcontrast series: No abnormal enhancement demonstrated. IMPRESSION: 1. Mild central canal narrowing and moderate bilateral neural foraminal narrowing at L5-S1. 2. Severe central canal narrowing with moderate to severe left and moderate right neural foraminal na rrowing at L4-5. 3. Mild central canal narrowing and mild bilateral neural foraminal narrowing at L3-4. 4. Limitations to the exam as above.
[2019-05-07] MEDS: Lactated Ringer's 1,000 ML IV SCH ×3 (09:49→20:18)
[2019-05-07] MEDS: Fluconazole 100 MG TAB PO SCH (09:50)
[2019-05-07] MEDS: DULoxetine 30 MG CAP PO SCH ×2 (09:52→20:16)
[2019-05-07] MEDS: risperiDONE 1 MG TAB PO SCH (09:52)
[2019-05-07] MEDS: PHOS-NAK 1 PKT PACK PO SCH ×3 (09:52→20:18)
[2019-05-07] MEDS: Enoxaparin Sodium 40 MG/0.4 ML SYRINGE SC SCH (09:56)
[2019-05-07] MEDS: Nystatin Powder 15 GM BOT TOP SCH ×3 (09:56→20:19)
--- NOTE | 2019-05-07 11:04 | SPC ---
Ultrasound and Fluoroscopic guided right upper extremity PICC placement HISTORY: Lower extremity cellulitis. Patient needs long-term IV antibiotics. FINDINGS: Informed consent obtained prior to the procedure. An appropriate access site was determined with ultrasound guidance. The area was then meticulously pr epped and draped in usual sterile fashion. Skin overlying the right basilic vein anesthetized with 1% buffered lidocaine. Utilizing direct sonog raphic guidance, vascular access is obtained via the right basilic vein, and an 0.018in guidewire was advanced to the cavoatrial junction. Intravascular length is calculated at 39 cm, and the PICC is cut accordingly. Needle is removed and replaced with a peel-away sheath. The PICC was advanced over the wire. Wire and peel-away sheath were removed. The tip of the catheter overlies the cavoatrial junction. The catheter was accessed and aspirated/flushed easily. Exposure data: 0.3 minutes of fluoroscopic time 1569 mGy centimeter squared FINDINGS: Technically successful placement of a 39 centimeter single lumen 5 [place] right upper extremity PICC line. IMPRESSION: Successful ultrasound guided placement of a right upper extremity PICC.
--- NOTE | 2019-05-07 17:21 | RAD ---
EXAM: Single view of the chest HISTORY: Tachycardia COMPARISON: 05/02/2019; CT abdomen/pelvis 04/05/2019 FINDINGS: Single view of the chest shows a normal sized cardiomediastinal silhouette. There is stabl e elevation of the right hemidiaphragm. A PICC line is seen with its tip in the superior vena cava. Linear opacity in the right lung base may resent atelectasis. The bones are unremarkable. IMPRESSION: Right basilar atelectasis
[2019-05-07 17:41] LABS: Troponin I Less than 0.010 ng/mL (< 0.028)
[2019-05-07 17:45] LABS: Anion Gap 14 mmol/L (10-20); BUN (Urea Nitrogen) 8 mg/dL (8.4-25.7); Calc. Creatinine Clearance 155 mL/min (70-130); Calcium 7.9 mg/dL (7.8-10.44); Carbon Dioxide 22 mmol/L (22-29); Chloride 104 mmol/L (98-107); Estimated GFR-MDRD Greater than 90; Glucose 94 mg/dL (70-105); Magnesium 1.8 mg/dL (1.6-2.6); Potassium 3.9 mmol/L (3.5-5.1); Sodium 136 mmol/L (136-145)
[2019-05-07] MEDS: hydrOXYzine 25 MG TAB PO PRN (20:25)
--- NOTE | 2019-05-07 20:49 | RAD ---
EXAM: Single view of the chest HISTORY: Dyspnea COMPARISON: 05/07/2019 FINDINGS: This exam is limited secondary to a monitor overlying the midportion of the chest. Single v iew of the chest shows a normal sized cardiomediastinal silhouette. There is stable elevation the right hemidiaphragm with linear opacity in the right lung base. A PICC line is unchanged in position . The bones are unremarkable. IMPRESSION: Stable exam.
[2019-05-07] MEDS: Levalbuterol HCl 0.63 MG/3 ML NEB NEB SCH (22:40)
--- NOTE | 2019-05-08 05:11 | PDOC.FM ---
- Subjective Subjective: Patient doing okay this morning. Reports that his legs are still somewhat tender. Talked with him about his episode of SVT last night. Patient denies any chest pain or palpitations this morning. - Objective Vital Signs & Weight: Vital Signs (12 hours) Temp Pulse Resp BP Pulse Ox 05/08/19 04:00 99.1 F 94 24 H 113/57 L 106 H 05/08/19 02:18 98 05/07/19 23:46 100.1 F H 106 H 23 H 120/66 94 L 05/07/19 20:37 100.7 F H 112 H 30 H 116/66 96 05/07/19 19:08 103 H 16 98 Weight Admit Weight 110.28 kg Weight 110.28 kg I&O: 05/06/19 05/07/19 05/08/19 06:59 06:59 06:59 Intake Total 3169 9644 Output Total 7372 0815 1624 Balance 1113 1804 -1625 Result Diagrams: 05/08/19 05:02 05/08/19 05:02 EKG Reviewed by me: Yes (sinus tach 100s, BBB) Phys Exam - Physical Examination Constitutional: NAD HEENT: moist MMs Neck: supple, full ROM wheezing throughout, dullness in LLL Cardiovascular: no significant murmur regular rate, tachycardic Gastrointestinal: soft, non-tender Musculoskeletal: pulses present BLE edema Neurological: normal sensation, moves all 4 limbs Psychiatric: normal affect, A&O x 3 Deviation from normal: cellulitis BLE and groin; desquamating skin over shoulders and back, legs Dx/Plan (1) CHF (congestive heart failure) Code(s): I50.9 - HEART FAILURE, UNSPECIFIED Status: Acute (2) COPD (chronic obstructive pulmonary disease) Status: Acute (3) Cellulitis Code(s): L03.90 - CELLULITIS, UNSPECIFIED Status: Acute (4) Hx of necrotising fasciitis Code(s): Z87.39 - PERSONAL HISTORY OF DISEASES OF THE MS SYS AND CONN TISS Status: Acute (5) Hypotension Status: Acute (6) Sepsis Code(s): A41.9 - SEPSIS, UNSPECIFIED ORGANISM Status: Acute (7) Hepatitis C antibody test positive Code(s): R76.8 - OTHER SPECIFIED ABNORMAL IMMUNOLOGICAL FINDINGS IN SERUM Status: Acute - Plan Plan: 59yM admitted for BLE cellulitis. #Sepsis 2/2 diffuse cellulitis with possible staph aureus bacteremia, has history of necrotizing fasciitis - CT scan w/o signs of fluid collection or subq air, repeat CT scan 05/06 demonstrated increase in subcutaneous edema with no forming abscess appreciable , small bilateral pleural effusions and atelectasis noted -incentive spirometry ordered; discussed with nursing to please ensure he is using this - Transitioned to cefazolin from Vanc, Zosyn 05/[address] Maria recs, Fluconazole added 05/05; continue - Order placed by Dr. Maria for patient to get a PICC line as patient will need prolonged abx treatment - Lumbar MRI read pending to demonstrate spinal involvement of the infection - WBC 18.6 > 21.7 > 22.2 > 21.5 > 19.7 > 19.7 > 15.4 - 05/02 blood cultures: 1/2 positive for methacillin sensitive staph, 1/2 positive for coag neg staph - 05/03 blood cultures: both negative to date - ID consulted 05/05, appreciate recs - Gen Surg consulted, appreciate recs #SVT, resolved - per report, patient went into SVT 05/07, which was resolved with valsalva maneuver - patient was moved to telemetry for further cardiac monitoring - overnight patient had sinus tach in the 100s, no episodes of SVT; patient denies cp or palpitations at this time #Hypotension, intermittent - stable overnight and this am - Responsive to fluids - Continue IVF resuscitation - Hold anti-hypertensives. #CHF, reported - ECHO 05/04/19: EF 70-75%. LV hyperdynamic. - Continue to monitor fluid status. #COPD - Continue home regimen - DuoNebs scheduled for respiratory status. - incentive spirometry #Hep C + -quant pending #Anemia -13.8 on admission, 9.8 today -patient received fluid bolus 05/06 and has been receiving fluids, likely dilutional -will continue to monitor Diet: Regular IVF: LR @ 100 Dispo: Admitted to medical inpt for IV abx. On telemetry for cardiac monitoring. Addendum - Attending - Attending Attestation Date/Time: 05/08/19 0886 I personally evaluated the patient and discussed the management with Dr. Casillas I agree with the History, Examination, Assessment and Plan documented above with any addition or exceptions noted below- Patient feeling a little better. SOB/wheezing improved. Afebrile VSS A/P: 1) Sepsis- improved. 2) Cellulitis- continue current abx. 3) SVT- no further episodes; will contact EP for further evaluation. 4) DM- well controlled
[2019-05-08 05:40] LABS: ALT (SGPT) 21 U/L (8-55); AST (SGOT) 31 U/L (5-34); Albumin 2.4 g/dL (3.5-5.0); Alkaline Phosphatase 43 U/L (40-110); Anion Gap 12 mmol/L (10-20); BUN (Urea Nitrogen) 8 mg/dL (8.4-25.7); Bilirubin, Total 0.4 mg/dL (0.2-1.2); Calc. Creatinine Clearance 168 mL/min (70-130); Calcium 7.8 mg/dL (7.8-10.44); Carbon Dioxide 23 mmol/L (22-29); Chloride 106 mmol/L (98-107); Estimated GFR-MDRD Greater than 90; Globulin 2.8 g/dL (2.4-3.5); Glucose 91 mg/dL (70-105); Potassium 3.7 mmol/L (3.5-5.1); Protein, Total 5.2 g/dL (6.0-8.3); Sodium 137 mmol/L (136-145)
[2019-05-08 05:43] LABS: #Eosinphils 0.6 thou/uL (0.0-0.7); #Lymphocytes 1.5 thou/uL (1.20-3.40); #Monocytes 0.8 thou/uL (0.11-0.59); #Neutrophils 5.8 thou/uL (1.40-6.50); %Basophils 0.2 % (0.0-1.0); %Lymphocytes 17.1 % (21.0-51.0); %Neutrophils 66.8 % (42.0-75.0); Hemoglobin 9.8 g/dL (14.0-18.0); Mean Corpuscular HGB CONC 32.8 g/dL (32.0-36.0); Mean Corpuscular Hemoglobin 26.6 pg (27.0-31.0); Mean Corpuscular Volume 80.9 fL (78.0-98.0); Mean Platelet Volume 7.4 fL (7.4-10.4); Platelet Count 213 thou/uL (130-400); RBC Distribution Width 12.2 % (11.5-14.5); Red Blood Cell (RBC) Count 3.68 mill/uL (4.70-6.10); White Blood Cell (WBC) Count 15.4 thou/uL (4.8-10.8)
[2019-05-08] MEDS: traMADol HCl 50 MG TAB PO PRN ×3 (05:56→23:16)
[2019-05-08] MEDS: CEFAZOLIN 2 GM in Premix Bag 1 BAG IVPB SCH ×3 (05:59→21:35)
[2019-05-08] MEDS: Lactated Ringer's 1,000 ML IV SCH (06:00)
[2019-05-08] MEDS: hydrOXYzine 25 MG TAB PO PRN (06:01)
[2019-05-08] MEDS: Levalbuterol HCl 0.63 MG/3 ML NEB NEB SCH ×3 (07:06→21:24)
[2019-05-08] MEDS: risperiDONE 1 MG TAB PO SCH (09:34)
[2019-05-08] MEDS: DULoxetine 30 MG CAP PO SCH ×2 (09:34→21:34)
[2019-05-08] MEDS: Fluconazole 100 MG TAB PO SCH (09:34)
[2019-05-08] MEDS: Enoxaparin Sodium 40 MG/0.4 ML SYRINGE SC SCH (09:35)
[2019-05-08] MEDS: Nystatin Powder 15 GM BOT TOP SCH ×3 (09:45→21:34)
[2019-05-08] MEDS: PHOS-NAK 1 PKT PACK PO SCH ×3 (10:58→21:34)
--- NOTE | 2019-05-08 17:26 | PDOC.EVN ---
Event Note - Event Note Event Note: Late entry for 05/07/2019 @ 16:00 Resident, Dr. Couch, called by nursing due to UF=538 BP 134/69 on vitals check. Patient c/o mild SOB, denies CP. Stat EKG obtained - c/w SVT. Transfer orders to telemetry initiated. Discussed with Dr. Couch trial of vagal manuver such as a Valsalva. Valsalva tried and HR decreased to 103. Continue transfer to tele for monitoring and recheck electrolytes, EKG, CXR. Patient examined by me and HR still in low 100s; feeling better though has wheezing on exam; will obtain BNP to evaluate for overload. Suspect pulmonary process. Will give dose of steroids and consider duoneb.
[2019-05-08] MEDS: Nystatin 500,000 UNITS/5 ML UDCUP SSW SCH ×2 (18:09→21:33)
[2019-05-09 04:50] LABS: Band 4 % (5-11); Eosinophils 2 % (0-10); Hypochromia SLIGHT = 6-15 cells (100X) (0-5/hpf); Lymphocytes 7 % (21-51); MDiff Complete? YES; Mean Corpuscular HGB CONC 32.6 g/dL (32.0-36.0); Mean Corpuscular Hemoglobin 26.2 pg (27.0-31.0); Mean Corpuscular Volume 80.4 fL (78.0-98.0); Mean Platelet Volume 7.4 fL (7.4-10.4); Metamyelocyte 1 % (0-0); Monocytes 5 % (0-10); Neutrophil 81 % (42-75); Platelet Count 225 thou/uL (130-400); Platelet Morphology Comment Appears Adequate; RBC Distribution Width 12.2 % (11.5-14.5)
[2019-05-09 04:52] LABS: ALT (SGPT) 27 U/L (8-55); AST (SGOT) 37 U/L (5-34); Albumin 2.5 g/dL (3.5-5.0); Alkaline Phosphatase 46 U/L (40-110); Anion Gap 11 mmol/L (10-20); BUN (Urea Nitrogen) 6 mg/dL (8.4-25.7); Bilirubin, Total 0.4 mg/dL (0.2-1.2); Calc. Creatinine Clearance 172 mL/min (70-130); Calcium 7.9 mg/dL (7.8-10.44); Carbon Dioxide 24 mmol/L (22-29); Chloride 106 mmol/L (98-107); Estimated GFR-MDRD Greater than 90; Globulin 3.1 g/dL (2.4-3.5); Glucose 105 mg/dL (70-105); Potassium 3.6 mmol/L (3.5-5.1); Protein, Total 5.6 g/dL (6.0-8.3); Sodium 137 mmol/L (136-145)
--- NOTE | 2019-05-09 05:13 | PDOC.FM ---
- Subjective Subjective: Patient doing well this morning, reports that he is feeling better. States that the duonebs helped him yesterday, will continue. Denies cp, reports that his legs are casing running machine tender but less so. - Objective Vital Signs & Weight: Vital Signs (12 hours) Temp Pulse Resp BP Pulse Ox 05/09/19 04:00 99.3 F 93 21 H 109/61 96 05/09/19 02:30 95 05/09/19 00:00 99.8 F H 92 20 115/58 L 93 L 05/08/19 21:24 97 20 93 L 05/08/19 20:25 99.6 F 96 22 H 116/62 98 Weight Admit Weight 110.28 kg Weight 121 kg I&O: 05/07/19 05/08/19 05/09/19 06:59 06:59 06:59 Intake Total 4954 1080 960 Output Total 3150 5455 9878 Balance 1769 -928 -9246 Result Diagrams: 05/09/19 04:05 05/09/19 04:05 EKG Reviewed by me: Yes (sinus 90s-100s) Phys Exam - Physical Examination Constitutional: NAD HEENT: moist MMs, sclera anicteric Neck: supple, full ROM wheezing throughout, improved from yesterday Cardiovascular: RRR, no significant murmur Gastrointestinal: soft, non-tender Musculoskeletal: pulses present 1+ edema BLE Neurological: normal sensation, moves all 4 limbs Psychiatric: normal affect, A&O x 3 Deviation from normal: Cellulitis BLE, improved; skin peeling throughout entire body Dx/Plan (1) CHF (congestive heart failure) Code(s): I50.9 - HEART FAILURE, UNSPECIFIED Status: Acute (2) COPD (chronic obstructive pulmonary disease) Status: Acute (3) Cellulitis Code(s): L03.90 - CELLULITIS, UNSPECIFIED Status: Acute (4) Hx of necrotising fasciitis Code(s): Z87.39 - PERSONAL HISTORY OF DISEASES OF THE MS SYS AND CONN TISS Status: Acute (5) Hypotension Status: Acute (6) Sepsis Code(s): A41.9 - SEPSIS, UNSPECIFIED ORGANISM Status: Acute (7) Hepatitis C antibody test positive Code(s): R76.8 - OTHER SPECIFIED ABNORMAL IMMUNOLOGICAL FINDINGS IN SERUM Status: Acute - Plan Plan: 59yM admitted for BLE cellulitis. #Sepsis 2/2 diffuse cellulitis with possible staph aureus bacteremia, has history of necrotizing fasciitis - CT scan w/o signs of fluid collection or subq air, repeat CT scan 05/06 demonstrated increase in subcutaneous edema with no forming abscess appreciable , small bilateral pleural effusions and atelectasis noted -incentive spirometry ordered; discussed with nursing to please ensure he is using this - Transitioned to cefazolin from Vanc, Zosyn 05/[address] Maria recs, Fluconazole added 05/05; continue - Order placed by Dr. Maria for patient to get a PICC line as patient will need prolonged abx treatment - Lumbar MRI shows spinal canal narrowing without evidence of infection invading spine - Patient was not tachycardic or febrile overnight; his vitals appear to be reflecting improvement in his infection - WBC 18.6 > 21.7 > 22.2 > 21.5 > 19.7 > 19.7 > 15.4 > 14 - 05/02 blood cultures: 1/2 positive for methacillin sensitive staph, 1/2 positive for coag neg staph - 05/03 blood cultures: both negative to date - ID consulted 05/05, appreciate recs - Gen Surg consulted, appreciate recs #SVT, resolved - per report, patient went into SVT 05/07, which was resolved with valsalva maneuver - patient was moved to telemetry for further cardiac monitoring - overnight patient was sinus 90s-100s, no runs of SVT - EP consulted, possible EPS study and ablation 05/10 #Hypotension, intermittent - stable overnight and this am - Responsive to fluids - Continue IVF resuscitation - Hold anti-hypertensives. #CHF, reported - ECHO 05/04/19: EF 70-75%. LV hyperdynamic. - Continue to monitor fluid status. #COPD - Continue home regimen - DuoNebs scheduled for respiratory status. - incentive spirometry #Hep C + -quant pending #Anemia -13.8 on admission, 10 today -patient received fluid bolus 05/06 and has been receiving fluids, likely dilutional -will continue to monitor #Diabetes -well controlled, continue current regimen Diet: Regular IVF: SL Dispo: Admitted to tele in for IV abx and cardiac monitoring, pending EP consult. Addendum - Attending - Attending Attestation Date/Time: 05/09/19 1156 I personally evaluated the patient and discussed the management with Dr. Casillas I agree with the History, Examination, Assessment and Plan documented above with any addition or exceptions noted below - Patient feeling better. Decreased wheezing and SOB. Afebrile VSS. A/P: 1) Cellulitis - improved; continue current abx. 2) SVT- no further episodes; appreciate EP recommendations; plan for EP study and possible ablation. 3) DM- well controlled. Continue current meds.
[2019-05-09] MEDS: CEFAZOLIN 2 GM in Premix Bag 1 BAG IVPB SCH ×3 (05:51→20:58)
[2019-05-09] MEDS: traMADol HCl 50 MG TAB PO PRN (05:52)
--- NOTE | 2019-05-09 07:02 | EKG ---
Test Reason : Blood Pressure : / mmHG Vent. Rate : 107 BPM Atrial Rate : 107 BPM P-R Int : 122 ms QRS Dur : 124 ms QT Int : 346 ms P-R-T Axes : 047 012 008 degrees QTc Int : 461 ms Sinus tachycardia with Premature supraventricular complexes Right bundle branch block Abnormal ECG When compared with ECG of 07-MAY-2019 14:41, (Unconfirmed) Premature supraventricular complexes are now Present Vent. rate has decreased BY 65 BPM Non-specific change in ST segment in Inferior leads Confirmed by DR. Bert GOMEZ ([id number]) on 05/09/2019 7:02:17 AM Referred By: OLIVIA PATTERSON Confirmed By:DR. Bert GOMEZ
--- NOTE | 2019-05-09 07:02 | EKG ---
Test Reason : Blood Pressure : / mmHG Vent. Rate : 172 BPM Atrial Rate : 174 BPM P-R Int : 000 ms QRS Dur : 112 ms QT Int : 246 ms P-R-T Axes : 000 024 040 degrees QTc Int : 416 ms Supraventricular tachycardia most likely, Low voltage QRS Right bundle branch block Abnormal ECG When compared with ECG of 02-MAY-2019 22:10, (Unconfirmed) Premature atrial complexes are no longer Present Vent. rate has increased BY 76 BPM QRS duration has decreased Confirmed by DR. Bert GOMEZ ([id number]) on 05/09/2019 7:01:49 AM Referred By: ALEXANDER Confirmed By:DR. Bert GOMEZ
[2019-05-09] MEDS: Levalbuterol HCl 0.63 MG/3 ML NEB NEB SCH (07:45)
--- NOTE | 2019-05-09 08:35 | PDOC.CPN ---
- Subjective Date: 05/09/19 Time: 08:33 Interval history: EP PROGRESS NOTE: 05/09/19 follow up for SVT. low grade fever over HS. No heart racing, palpitations, chest pain, pressure, or passing out. reports palpitations and heart racing began ~2-3 months ago, then increasing frequency - Review of Systems General: reports: fatigue. denies: fever/chills, weight/appetite/sleep changes , night sweats Respiratory: reports: exercise intolerance. denies: cough, congestion, shortness of breath Cardiovascular: reports: edema. denies: chest pain, palpitation, paroxysmal nocturnal dyspnea, orthopnea Gastrointestinal: denies: nausea, vomiting, diarrhea, constipation, abd pain, GI bleeding - Objective Allergies/Adverse Reactions: Allergies Allergy/AdvReac Type Severity Reaction Status Date / Time aspirin Allergy Verified 05/03/19 03:25 clindamycin Allergy Nausea Verified 05/03/19 03:25 ibuprofen [From Motrin] Allergy Verified 05/03/19 03:25 Sulfa (Sulfonamide Allergy Hives Verified 05/03/19 03:25 Antibiotics) Visit Medications: Current Medications Acetaminophen (Tylenol) 650 mg PO Q4H PRN PRN Reason: Headache/Fever/Mild Pain (1-3) Last Admin: 05/06/19 20:49 Dose: 650 mg Albuterol/Ipratropium (Duoneb) 3 ml NEB [id number] [facility] Dextrose/Water (Dextrose 50%) 25 gm SLOW IVP PRN PRN PRN Reason: Hypoglycemia Duloxetine HCl (Cymbalta) 30 mg PO BID [facility] Last Admin: 05/08/19 21:34 Dose: 30 mg Enoxaparin Sodium (Lovenox) 40 mg SC 0900 [facility] Last Admin: 05/08/19 09:35 Dose: 40 mg Fluconazole (Diflucan) 150 mg PO DAILY [facility] Last Admin: 05/08/19 09:34 Dose: 150 mg Glucagon (Glucagon) 1 mg IM PRN PRN PRN Reason: Hypoglycemia Hydroxyzine HCl (Atarax) 25 mg PO QID PRN PRN Reason: Itching Last Admin: 05/08/19 06:01 Dose: 25 mg Dextrose/Water (D5w) 1,000 mls @ 0 mls/hr IV .Q0M PRN PRN Reason: Hypoglycemia Cefazolin Sodium/Dextrose 2 gm (/ Device) 50 mls @ 100 mls/hr IVPB Q8HR [facility] Last Admin: 05/09/19 05:51 Dose: 50 mls Insulin Human Lispro (Humalog) 0 units SC .MILD SLIDING SCALE PRN PRN Reason: Mild Correctional Scale Last Admin: 05/04/19 21:17 Dose: 2 unit Miscellaneous Medication (Phos-Nak) 1 pkt PO TID [facility] Last Admin: 05/08/19 21:34 Dose: 1 pkt Nystatin (Mycostatin Powder) 1 gm TOP TID [facility] Last Admin: 05/08/19 21:34 Dose: 1 gm Nystatin (Mycostatin) 500,000 units SSW QID [facility] Last Admin: 05/08/19 21:33 Dose: 500,000 units Ondansetron HCl (Zofran) 4 mg IVP Q6H PRN PRN Reason: Nausea/Vomiting Pantoprazole Sodium (Protonix) 40 mg PO DAILY [facility] Last Admin: 05/08/19 09:34 Dose: 40 mg Risperidone (Risperidone) 4 mg PO DAILY [facility] Last Admin: 05/08/19 09:34 Dose: 4 mg Sodium Chloride (Flush - Normal Saline) 10 ml IVF Q12HR [facility] Last Admin: 05/08/19 21:34 Dose: 10 ml Sodium Chloride (Flush - Normal Saline) 10 ml IVF PRN PRN PRN Reason: Saline Flush Throat Lozenges (Cepastat Lozenges) 1 traci PO Q2H PRN PRN Reason: Sore Throat Last Admin: 05/06/19 08:06 Dose: 1 traci Tramadol HCl (Ultram) 50 mg PO Q4H PRN PRN Reason: Pain 4-6 Last Admin: 05/09/19 05:52 Dose: 50 mg Vital Signs & Weight: Vital Signs Temp Pulse Resp BP Pulse Ox 05/09/19 07:45 86 20 95 05/09/19 04:00 99.3 F 93 21 H 109/61 96 05/09/19 02:30 95 05/09/19 00:00 99.8 F H 92 20 115/58 L 93 L 05/08/19 21:24 97 20 93 L Admit Weight 243 lb 2 oz Weight 266 lb 12.149 oz - Physical Exam General: alert & oriented x3, appears well, no apparent distress HEENT: mucus membranes moist, normocephaly Neck: supple neck, midline trachea, no JVD/HJR Cardiac: no murmur, regular rhythm, tachycardia Lungs: clear to auscultation, normal breath sounds, normal exam Neuro: cranial nerve 2-12 intact, grossly intact, no lateralizing findings Abdomen: unremarkable, active bowel sounds, no masses Extremities: no cyanosis, no clubbing, 2+ LE edema - Labs Result Diagrams: 05/09/19 04:05 05/09/19 04:05 Troponin/CKMB Troponin I Less than 0.010 ng/mL (< 0.028) 05/07/19 16:59 - EKG Interpretation EKG Method: 12 Lead (prior EKG this stay shows SVT, likely AVNRT) - Telemetry Sinus rhythms and dysrhythmias: sinus tachycardia - Assessment/Plan Assessment/Plan: 1. 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 patient cannot recall 2. Cellulitis -ID managing anbx. -LGF over HS with Tmax ~99.8 3. Sepsis/SIRS 4. Obesity 5. h/o CHF -Ef 70% 6. Edema 7. Bacteremia Will discuss with Dr. Maria as it may be jimenez to wait until bacteremia is resolved before proceeding with ablation. If ID is ok with ablation we may be able to schedule him for tomorrow for SVT if medically stable.
[2019-05-09] MEDS: risperiDONE 1 MG TAB PO SCH (09:48)
[2019-05-09] MEDS: Enoxaparin Sodium 40 MG/0.4 ML SYRINGE SC SCH (09:49)
[2019-05-09] MEDS: DULoxetine 30 MG CAP PO SCH ×2 (09:49→21:00)
[2019-05-09] MEDS: Nystatin 500,000 UNITS/5 ML UDCUP SSW SCH ×4 (09:49→21:27)
[2019-05-09] MEDS: PHOS-NAK 1 PKT PACK PO SCH ×3 (09:49→21:00)
[2019-05-09] MEDS: Fluconazole 100 MG TAB PO SCH (09:49)
[2019-05-09] MEDS: Nystatin Powder 15 GM BOT TOP SCH ×3 (09:50→21:00)
--- NOTE | 2019-05-09 09:56 | CON ---
DATE OF CONSULTATION: 05/08/2019 DICTATED FOR: Dr. Donnie Zee. REASON FOR CONSULTATION: SVT. HISTORY OF PRESENT ILLNESS: Mr. Maher is a 59-year-old gentleman, who presented to [facility] complaining of rash on his abdomen and bilateral lower extremities for 2 weeks. He was also having fever, body aches, and chills. He reports that he was recently on oral antibiotics and does have a history significant for necrotizing fasciitis affecting the left abdomen and inguinal region, which previously required surgical excision. He was admitted with a diagnosis of cellulitis and sepsis with an elevated WBC and lactic acid. He was given approximately 3 L of fluid and since then has gone into some fluid overload. He has a history of congestive heart failure. An echocardiogram was performed that reveals an ejection fraction of 70% to 75%. Left and right atrium are in normal size. On telemetry, he was found to have an episode of SVT and this was captured in a 12- lead EKG as well. It is unclear, what was done to terminate this SVT episode. The patient reports that some IV medicine was administered ending his heart racing. He endorses he has had some heart racing over the past weeks to months, but does not recall this being an issue for years, much less when he was younger. General Surgery was consulted regarding his cellulitis, deemed nonoperable. Infectious Disease is managing IV antibiotic course. Mr. Gee is feeling fairly well. He denies any current heart racing, palpitations, chest pain, pressure, syncope, near syncope, stroke, or stroke- like symptoms. He does report that he has swelling to bilateral lower extremities with flaking skin and recent fever, chills with malaise. REVIEW OF SYSTEMS: A 12-point review of systems is negative except that listed above in HPI. PAST MEDICAL HISTORY: 1. Congestive heart failure. 2. Diabetes, diet controlled. 3. Chronic hepatitis C. 4. Hypertension. 5. COPD. 6. Sleep apnea. 7. Depression. 8. Necrotizing fasciitis. FAMILY HISTORY: Noncontributory. SOCIAL HISTORY: The patient is an inmate. Denies alcohol, tobacco, or illicit drug use. PHYSICAL EXAMINATION: VITAL SIGNS: Temperature 99.7, pulse 97, blood pressure is 130/71, respirations 18, and oxygen is 95% on room air. GENERAL: The patient is alert and oriented. His speech is clear. His affect is appropriate. He is in no apparent distress, resting semirecumbent in the bed. NECK: Supple without jugular venous distention. LUNGS: Clear to auscultation. He is currently receiving a nebulizer treatment. HEART: Rate is regular and slightly rapid with crisp S1 and S2. PMI is nonpalpable due to habitus. ABDOMEN: Obese, but nondistended, nontender. No palpable masses. EXTREMITIES: Exhibit 3+ edema bilaterally with erythema greater on the left side than the right and significant skin flaking off. There is some drainage in the left as well. NEUROLOGIC: No focal deficits are found on neurologic exam. Cranial nerves 2 through 12 are grossly intact. Gait was not assessed. DATABASE: WBC 15.4, hemoglobin 9.8, platelet count is 213. Potassium 3.7, creatinine 0.73, magnesium 1.8. Lactic acid was 6.1. Initial Blood cultures are positive for Staph, second set from 05/03/19 is negative so far for growth. Echocardiogram, EF estimated 70% to 75%, normal left atrium size. Left ventricle is hyperdynamic. Telemetry and EKGs largely reflects sinus rhythm with a right bundle-branch block. QRS is approximately 136 milliseconds. There is a 12-lead EKG of his SVT episode, where his ventricular rate was 172 beats per minute suggestive of AVNRT with a short RP interval. IMPRESSION: 1. 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 2. Sepsis. 3. Cellulitis. PLAN AND RECOMMENDATIONS: We discussed treatment options for SVT including medical management versus ablation. At this point, he remains febrile with an elevated white count. My recommendation is for EP study with ablation possibly on Monday if his infection issues improve and the patient decides this is a path he wants to go. We will see him tomorrow and discuss with Dr Maria (ID) and he will consider these options. Thank you for allowing me to participate in the care of this patient. Job ID: [id number] MTDD
[2019-05-09] MEDS ORDERED: Hydrocerin (Eucerin) Cream 120 gm Jar TOP PRN (11:01)
[2019-05-09 13:15] LABS: Anion Gap 11 mmol/L (10-20); BUN (Urea Nitrogen) 6 mg/dL (8.4-25.7); Calc. Creatinine Clearance 175 mL/min (70-130); Carbon Dioxide 24 mmol/L (22-29); Chloride 105 mmol/L (98-107); Estimated GFR-MDRD Greater than 90; Glucose 124 mg/dL (70-105); Potassium 3.5 mmol/L (3.5-5.1); Sodium 136 mmol/L (136-145)
[2019-05-09 13:16] LABS: Band 13 % (5-11); Elliptocytes SLIGHT = 2-5 cells (100X) (0-1/hpf); Eosinophils 5 % (0-10); Hemoglobin 10.5 g/dL (14.0-18.0); Lymphocytes 17 % (21-51); MDiff Complete? YES; Mean Corpuscular HGB CONC 32.3 g/dL (32.0-36.0); Mean Corpuscular Hemoglobin 26.1 pg (27.0-31.0); Mean Corpuscular Volume 80.8 fL (78.0-98.0); Mean Platelet Volume 7.4 fL (7.4-10.4); Metamyelocyte 1 % (0-0); Monocytes 5 % (0-10); Neutrophil 53 % (42-75); Ovalocytes SLIGHT = 2-5 cells (100X) (0-1/hpf); Platelet Count 247 thou/uL (130-400); Platelet Morphology Comment Appears Adequate; Polychromasia SLIGHT = 2-3 cells (100X) (0-2/hpf); RBC Distribution Width 12.4 % (11.5-14.5); Reactive Lymphocytes 6 % (0-10); Red Blood Cell (RBC) Count 4.02 mill/uL (4.70-6.10); White Blood Cell (WBC) Count 13.4 thou/uL (4.8-10.8)
[2019-05-09 16:09] LABS: HCV log10 5.825 (.); Hep C PCR-Quant 668000 IU/mL (.)
--- NOTE | 2019-05-09 16:49 | PRG ---
DATE OF SERVICE: SUBJECTIVE: Skin is improving. The patient has diffuse exfoliation. Back pain as previously noted. Mild dyspnea. No abdominal pain. OBJECTIVE: VITAL SIGNS: T-max 100.7 on May 07 and more recently was 100, BP 108/58, pulse 93, respirations 20, O2 saturation 97. SKIN: Exam shows diffuse exfoliation. The previous erythroderma has improved markedly, oriented. LUNGS: Clear. HEART: S1-S2 regular rate. ABDOMEN: Soft, nondistended. He is doing self-intermittent catheterization. EXTREMITIES: Moves extremities. LABORATORY DATA: White cell count is 13.4, hemoglobin 10.5, platelets 247, 13% bands. Creatinine 0.77. Hepatitis C RNA PCR was 668,000. HIV was nonreactive. Lumbar spine MRI did not show any evidence of diskitis or osteomyelitis. 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 The patient apparently needs ablation. I think since no device is going to be implanted, it should be safe to perform this now. The patient were to need a pacemaker, then he would increase somewhat the risk of the procedure, but that probably would happen any ways, but it will be probably safer if he needed the device to wait for the intervention. The patient again will need continuation of IV antimicrobial therapy for protracted periods of time with cefazolin at least for 4 weeks in the absence of any focal area of involvement, may have to increase to 6 weeks in view of the delayed resolution of his fever. Job ID: [id number]
[2019-05-10] MEDS: CEFAZOLIN 2 GM in Premix Bag 1 BAG IVPB SCH ×3 (05:07→21:33)
[2019-05-10 06:00] LABS: ALT (SGPT) 25 U/L (8-55); AST (SGOT) 37 U/L (5-34); Albumin 2.7 g/dL (3.5-5.0); Alkaline Phosphatase 48 U/L (40-110); Anion Gap 11 mmol/L (10-20); BUN (Urea Nitrogen) 5 mg/dL (8.4-25.7); Bilirubin, Total 0.4 mg/dL (0.2-1.2); Calc. Creatinine Clearance 166 mL/min (70-130); Calcium 7.9 mg/dL (7.8-10.44); Carbon Dioxide 23 mmol/L (22-29); Chloride 107 mmol/L (98-107); Estimated GFR-MDRD Greater than 90; Globulin 3.3 g/dL (2.4-3.5); Glucose 107 mg/dL (70-105); Potassium 3.8 mmol/L (3.5-5.1); Sodium 137 mmol/L (136-145)
--- NOTE | 2019-05-10 06:00 | PDOC.FM ---
- Subjective Subjective: Patient doing well this morning. Reports that his leg tenderness continues to improve; his skin is still flaking diffusely. Afebrile overnight. Patient reports the duonebs continue to help his breathing. Ablation planned this morning per EP, patient agreeable with plan of care. - Objective Vital Signs & Weight: Vital Signs (12 hours) Temp Pulse Resp BP Pulse Ox 05/10/19 03:23 98.4 F 93 18 118/58 L 94 L 05/10/19 02:50 88 16 96 05/09/19 22:18 97 16 91 L 05/09/19 20:00 99 05/09/19 19:06 100.2 F H 90 22 H 126/61 99 05/09/19 19:00 90 16 96 Weight Admit Weight 110.28 kg Weight 117.979 kg I&O: 05/08/19 05/09/19 05/10/19 06:59 06:59 06:59 Intake Total 1080 2020 1280 Output Total 7335 3345 3250 Balance -253 -5205 -5277 Result Diagrams: 05/10/19 05:21 05/10/19 05:21 EKG Reviewed by me: Yes (sinus 80s-90s, occasional PVC) Phys Exam - Physical Examination Constitutional: NAD HEENT: moist MMs, sclera anicteric Neck: supple, full ROM wheezing throughout Cardiovascular: RRR, no significant murmur Gastrointestinal: soft, non-tender Musculoskeletal: pulses present, edema present (1+ BLE edema) Neurological: normal sensation, moves all 4 limbs Psychiatric: normal affect, A&O x 3 Deviation from normal: BLE cellulitis, diffuse skin peeling Dx/Plan (1) CHF (congestive heart failure) Code(s): I50.9 - HEART FAILURE, UNSPECIFIED Status: Chronic (2) COPD (chronic obstructive pulmonary disease) Status: Chronic (3) Cellulitis Code(s): L03.90 - CELLULITIS, UNSPECIFIED Status: Acute (4) Hx of necrotising fasciitis Code(s): Z87.39 - PERSONAL HISTORY OF DISEASES OF THE MS SYS AND CONN TISS Status: Acute (5) Hypotension Status: Resolved (6) Sepsis Code(s): A41.9 - SEPSIS, UNSPECIFIED ORGANISM Status: Resolved (7) Hepatitis C antibody test positive Code(s): R76.8 - OTHER SPECIFIED ABNORMAL IMMUNOLOGICAL FINDINGS IN SERUM Status: Acute - Plan Plan: 59yM admitted for BLE cellulitis. #Sepsis 2/2 diffuse cellulitis with possible staph aureus bacteremia, has history of necrotizing fasciitis - CT scan w/o signs of fluid collection or subq air, repeat CT scan 05/06 demonstrated increase in subcutaneous edema with no forming abscess appreciable , small bilateral pleural effusions and atelectasis noted -incentive spirometry ordered; discussed with nursing to please ensure he is using this - Transitioned to cefazolin from Vanc, Zosyn 05/[address] Candace schwarz, Fluconazole added 05/05; continue - Patient has PICC line, per Candace brock patient will likely need IV cefazolin for 4-6wks, more likely 6 due to patient's prolonged fever - Lumbar MRI shows spinal canal narrowing without evidence of infection invading spine - Patient was not tachycardic or febrile overnight; his vitals appear continue to reflect improvement in his infection - WBC 18.6 > 21.7 > 22.2 > 21.5 > 19.7 > 19.7 > 15.4 > 14 > 14.8 - 05/02 blood cultures: 1/2 positive for methacillin sensitive staph, 1/2 positive for coag neg staph - 05/03 blood cultures: both negative to date #SVT, resolved - per report, patient went into SVT 05/07, which was resolved with valsalva maneuver - patient was moved to telemetry for further cardiac monitoring - overnight sinus 80s-90s, no runs of SVT - EP consulted, ablation today 05/10 #CHF, reported - ECHO 05/04/19: EF 70-75%. LV hyperdynamic. - Continue to monitor fluid status. #COPD - Continue home regimen - DuoNebs scheduled for respiratory status. - incentive spirometry #Hep C + -[id number] viral copies -will put on discharge summary recommended treatment outpatient #Anemia -stable -patient received fluid bolus 05/06 and has been receiving fluids, likely dilutional -will continue to monitor #Diabetes -well controlled, continue current regimen #Hypotension, intermittent, resolved - stable overnight and this am - Responsive to fluids - Continue IVF resuscitation - Hold anti-hypertensives. Diet: Regular IVF: SL Dispo: Admitted to tele inpt for IV abx and cardiac monitoring, EP ablation today Addendum - Attending - Attending Attestation Date/Time: 05/10/19 3340 I personally evaluated the patient and discussed the management with Dr. Casillas. I agree with the History, Examination, Assessment and Plan documented above with any addition or exceptions noted below.
[2019-05-10 06:03] LABS: Band 2 % (5-11); Eosinophils 6 % (0-10); Hemoglobin 10.3 g/dL (14.0-18.0); Lymphocytes 14 % (21-51); MDiff Complete? YES; Mean Corpuscular HGB CONC 31.5 g/dL (32.0-36.0); Mean Corpuscular Hemoglobin 25.7 pg (27.0-31.0); Mean Corpuscular Volume 81.7 fL (78.0-98.0); Mean Platelet Volume 7.2 fL (7.4-10.4); Monocytes 8 % (0-10); Neutrophil 69 % (42-75); Platelet Count 260 thou/uL (130-400); RBC Distribution Width 12.5 % (11.5-14.5); Reactive Lymphocytes 1 % (0-10); Red Blood Cell (RBC) Count 3.98 mill/uL (4.70-6.10); White Blood Cell (WBC) Count 14.8 thou/uL (4.8-10.8)
[2019-05-10] MEDS ORDERED: PROPOFOL 200 MG/20 ML VIAL ONE (09:59)
[2019-05-10] MEDS ORDERED: Heparin (Artline) 500 ML ONE (11:05)
[2019-05-10] MEDS ORDERED: Fentanyl 100 MCG/2 ML VIAL ONE (11:09)
[2019-05-10] MEDS ORDERED: Lidocaine 1% (PF) 30 ML VIAL ONE (11:09)
[2019-05-10] MEDS ORDERED: Propofol 500 MG/50 ML VIAL ONE (11:10)
[2019-05-10] MEDS ORDERED: Midazolam HCl 2 mg/2 ml Vial ONE (11:10)
[2019-05-10] MEDS ORDERED: Ketamine 50 MG/ML (10ML VIAL) ONE (11:39)
[2019-05-10] MEDS ORDERED: Heparin 10,000 UNITS/1 ML VIAL ONE (12:08)
[2019-05-10] MEDS ORDERED: PROPOFOL 20 ML ONE (12:08)
[2019-05-10] MEDS ORDERED: Isoproterenol 0.2 MG/1 ML AMP ONE (12:24)
[2019-05-10] MEDS ORDERED: Sodium Chloride For Inhalation 0.9% 3 ML NEB ONE (12:46)
[2019-05-10] MEDS ORDERED: Ondansetron HCl/PF 4 MG/2 ML Vial IVP PRN (13:04)
--- NOTE | 2019-05-10 14:27 | EKG ---
Test Reason : POST EP STUDY/ABLATI Blood Pressure : / mmHG Vent. Rate : 081 BPM Atrial Rate : 081 BPM P-R Int : 116 ms QRS Dur : 134 ms QT Int : 412 ms P-R-T Axes : 065 037 014 degrees QTc Int : 478 ms Normal sinus rhythm Right bundle branch block Abnormal ECG When compared with ECG of 07-MAY-2019 16:54, Premature supraventricular complexes are no longer Present Confirmed by DR. Bert GOMEZ (3) on 05/10/2019 2:27:10 PM Referred By: GERA Confirmed By:DR. Bert GOMEZ
[2019-05-10] MEDS: Ipratropium Oral Inhaler INH SCH ×2 (14:52→19:34)
[2019-05-10] MEDS: Nystatin 500,000 UNITS/5 ML UDCUP SSW SCH ×4 (15:19→20:14)
[2019-05-10] MEDS: Nystatin Powder 15 GM BOT TOP SCH ×3 (15:19→20:14)
[2019-05-10] MEDS: Enoxaparin Sodium 40 MG/0.4 ML SYRINGE SC SCH (15:19)
[2019-05-10] MEDS: risperiDONE 1 MG TAB PO SCH (15:20)
[2019-05-10] MEDS: DULoxetine 30 MG CAP PO SCH ×2 (15:20→20:15)
[2019-05-10] MEDS: Fluconazole 100 MG TAB PO SCH (15:20)
[2019-05-10] MEDS: PHOS-NAK 1 PKT PACK PO SCH ×3 (15:21→20:14)
[2019-05-10] MEDS: Acetaminophen 325 MG TAB PO PRN (15:22)
--- NOTE | 2019-05-10 19:01 | OP ---
DATE OF PROCEDURE: 05/10/2019 PROCEDURES PERFORMED: Electrophysiology study and radiofrequency ablation. REASON FOR PROCEDURE: Mr. Maher is a 59-year-old inmate, who presented with fevers and chills. He was found to have a staph bacteremia and antibiotic therapy was started, also had improving symptoms and the second set of blood cultures were negative. White cell counts are down trending. During the observation, he had episodes of supraventricular tachycardia, which responded well to adenosine, which is a chronic symptom for him. He here for EP study and ablation procedure. DESCRIPTION OF PROCEDURE: The patient received deep sedation by anesthesia specialist. The left femoral venous area was prepped, draped, and anesthetized using subcutaneous lidocaine and under ultrasound guidance, both femoral veins were cannulated and a 6 and 8-Yi sheaths were introduced from the left side through which a octapolar and decapolar catheters were advanced to the right atrium, right ventricle, His bundle, and CS position. Pacing mapping and recording were performed in each location including the pacing in left atrium via the CS. Following findings were noted, baseline rhythm was sinus rhythm. Cycle length 772 milliseconds, MO 153 milliseconds, QRS 112 milliseconds, QT 434 milliseconds, AH 61 milliseconds, HV 748 milliseconds. The AV Wenckebach cycle length was 340 milliseconds. Retrograde Wenckebach cycle length was 220 milliseconds. AV aniket ERP was 600/240 milliseconds. Dual AV aniket physiology was observed. Retrograde VA pacing was with concentric retrograde VA conduction. During burst atrial pacing, frequent initiation of narrow complex tachycardia was noted with tachycardia cycle length of 400 milliseconds. Very short VA timing noted about 40 milliseconds suggestive of AV aniket reentrant tachycardia. Burst ventricular pacing attempted, but reliably terminated tachycardia. 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 3D map of the right atrium was obtained, delineating the His bundle, CS in the slow pathway area. Slow pathway modification was performed with total of 3 lesions. Total ablation time 1 minute and 25 seconds delivered at 40 rivera with a 50-degree cutoff. We were able to achieve a junctional beats during the tachycardia. No AV block was observed. With following that, the AV Wenckebach cycle length was changed to 350 milliseconds, and no dual AV aniket physiology observed during atrial extrastimulus testing. AV aniket ERP was changed to 600/280 milliseconds. Isuprel was administered at 5 mcg and the stimulation protocol was resumed. On Isuprel, AV Wenckebach cycle length was 320 milliseconds. No AV aniket tachycardia was observed after ablation on and off Isuprel. At the end of the case, cardiac silhouette was checked and revealed no change to suggest effusion. CONCLUSION: 1. Inducible typical AV aniket reentrant tachycardia. 2. Initial presence of slow pathway noted, which eliminated by the ablation. 3. Normal AV aniket and His-Purkinje function pre and post. 4. Baseline right bundle-branch block. 5. Normal sinus aniket function. PLAN: Routine post ablation care. Monitor for recurrent arrhythmias. Job ID: [id number]
[2019-05-10] MEDS: Acetaminophen/Codeine 30-300mg Tablet PO PRN (20:15)
[2019-05-11] MEDS: PROVENTIL INHALER 6.7 G (200 INHALATIONS) INH PRN ×2 (00:30→07:11)
[2019-05-11] MEDS: Acetaminophen/Codeine 30-300mg Tablet PO PRN ×4 (00:36→21:03)
[2019-05-11 04:59] LABS: #Eosinphils 0.8 thou/uL (0.0-0.7); #Lymphocytes 2.5 thou/uL (1.20-3.40); #Neutrophils 7.7 thou/uL (1.40-6.50); %Basophils 0.3 % (0.0-1.0); %Eosinophils 6.9 % (0.0-10.0); %Lymphocytes 20.3 % (21.0-51.0); %Monocytes 8.3 % (0.0-10.0); %Neutrophils 64.2 % (42.0-75.0); Hemoglobin 9.9 g/dL (14.0-18.0); Mean Corpuscular HGB CONC 32.2 g/dL (32.0-36.0); Mean Corpuscular Hemoglobin 26.3 pg (27.0-31.0); Mean Corpuscular Volume 81.5 fL (78.0-98.0); Mean Platelet Volume 7.3 fL (7.4-10.4); Platelet Count 244 thou/uL (130-400); RBC Distribution Width 12.5 % (11.5-14.5); Red Blood Cell (RBC) Count 3.76 mill/uL (4.70-6.10)
[2019-05-11 05:21] LABS: ALT (SGPT) 27 U/L (8-55); AST (SGOT) 34 U/L (5-34); Albumin 2.7 g/dL (3.5-5.0); Alkaline Phosphatase 50 U/L (40-110); Anion Gap 8 mmol/L (10-20); BUN (Urea Nitrogen) 5 mg/dL (8.4-25.7); Bilirubin, Total 0.4 mg/dL (0.2-1.2); Calc. Creatinine Clearance 177 mL/min (70-130); Calcium 8.1 mg/dL (7.8-10.44); Carbon Dioxide 26 mmol/L (22-29); Chloride 109 mmol/L (98-107); Estimated GFR-MDRD Greater than 90; Globulin 3.5 g/dL (2.4-3.5); Glucose 117 mg/dL (70-105); Potassium 4.2 mmol/L (3.5-5.1); Protein, Total 6.2 g/dL (6.0-8.3); Sodium 139 mmol/L (136-145)
[2019-05-11] MEDS: CEFAZOLIN 2 GM in Premix Bag 1 BAG IVPB SCH ×3 (05:25→21:03)
--- NOTE | 2019-05-11 05:38 | PDOC.FM ---
- Subjective Subjective: Patient did well overnight, did well with the ablation yesterday. Denies cp. Reports of continued leg tenderness. - Objective Vital Signs & Weight: Vital Signs (12 hours) Temp Pulse Resp BP Pulse Ox 05/11/19 04:26 97.5 F L 84 18 149/79 H 94 L 05/11/19 00:30 89 16 99 05/10/19 19:35 98.6 F 84 22 H 135/68 97 05/10/19 19:34 83 16 97 05/10/19 18:52 97 Weight Admit Weight 110.28 kg Weight 116.21 kg I&O: 05/09/19 05/10/19 05/11/19 06:59 06:59 06:59 Intake Total 20190 1200 Output Total 4819 7645 8842 Balance -6655 -1970 -8470 Result Diagrams: 05/11/19 04:27 05/11/19 04:27 Phys Exam - Physical Examination Constitutional: NAD HEENT: PERRLA, moist MMs Neck: supple, full ROM Respiratory: no wheezing wheezing throughout Cardiovascular: RRR, no significant murmur Gastrointestinal: soft, non-tender Musculoskeletal: no edema, pulses present Neurological: normal sensation, moves all 4 limbs Lymphatic: no nodes Psychiatric: normal affect, A&O x 3 Deviation from normal: BLE cellulitis, diffuse skin peeling Dx/Plan (1) CHF (congestive heart failure) Code(s): I50.9 - HEART FAILURE, UNSPECIFIED Status: Chronic (2) COPD (chronic obstructive pulmonary disease) Status: Chronic (3) Cellulitis Code(s): L03.90 - CELLULITIS, UNSPECIFIED Status: Acute (4) Hx of necrotising fasciitis Code(s): Z87.39 - PERSONAL HISTORY OF DISEASES OF THE MS SYS AND CONN TISS Status: Acute (5) Hypotension Status: Resolved (6) Sepsis Code(s): A41.9 - SEPSIS, UNSPECIFIED ORGANISM Status: Resolved (7) Hepatitis C antibody test positive Code(s): R76.8 - OTHER SPECIFIED ABNORMAL IMMUNOLOGICAL FINDINGS IN SERUM Status: Acute - Plan Plan: 59yM admitted for BLE cellulitis. #Sepsis 2/2 diffuse cellulitis with possible staph aureus bacteremia, has history of necrotizing fasciitis - CT scan w/o signs of fluid collection or subq air, repeat CT scan 05/06 demonstrated increase in subcutaneous edema with no forming abscess appreciable , small bilateral pleural effusions and atelectasis noted -incentive spirometry ordered; discussed with nursing to please ensure he is using this - Transitioned to cefazolin from Vanc, Zosyn 05/[address] Candace schwarz, Fluconazole added 05/05; continue - Patient has PICC line, per Candace brock patient will likely need IV cefazolin for 4-6wks, more likely 6 due to patient's prolonged fever - Lumbar MRI shows spinal canal narrowing without evidence of infection invading spine - Patient was not tachycardic or febrile overnight; his vitals appear continue to reflect improvement in his infection - WBC 18.6 > 21.7 > 22.2 > 21.5 > 19.7 > 19.7 > 15.4 > 14 > 14.8 > 12.0 - 05/02 blood cultures: 1/2 positive for methacillin sensitive staph, 1/2 positive for coag neg staph - 05/03 blood cultures: both negative to date #SVT, resolved - per report, patient went into SVT 05/07, which was resolved with valsalva maneuver - patient was moved to telemetry for further cardiac monitoring - overnight sinus rhythm - EP consulted, study showed AVNRT, ablation 05/10 #CHF, reported - ECHO 05/04/19: EF 70-75%. LV hyperdynamic. - Continue to monitor fluid status. #COPD - Continue home regimen - symbicort (dulera) added 05/11 - incentive spirometry #Hep C + -[id number] viral copies -patient reports that he's know he's had it for 20 years, hx of IV Drug use -will put on discharge summary recommended treatment outpatient #Anemia -stable -patient received fluid bolus 05/06 and has been receiving fluids, likely dilutional -will continue to monitor #Diabetes -well controlled, continue current regimen #Hypotension, intermittent, resolved - stable overnight and this am - Responsive to fluids - Continue IVF resuscitation - Hold anti-hypertensives. Diet: Regular IVF: SL Dispo: Admitted to tele inpt for IV abx and cardiac monitoring Code: Full Addendum - Attending - Attending Attestation Date/Time: 05/11/19 700 I personally evaluated the patient and discussed the management with Dr. Casillas. I agree with the History, Examination, Assessment and Plan documented above with any addition or exceptions noted below. The patient is s/p ablation yesterday. Will f/u on cards recs. Continue IV antibiotics. Pt will need long-term antibiotics.
[2019-05-11] MEDS: hydrOXYzine 25 MG TAB PO PRN ×2 (06:38→15:38)
[2019-05-11] MEDS: Ipratropium Oral Inhaler INH SCH (07:10)
[2019-05-11] MEDS: Nystatin 500,000 UNITS/5 ML UDCUP SSW SCH ×4 (08:27→20:59)
[2019-05-11] MEDS: Fluconazole 100 MG TAB PO SCH (08:28)
[2019-05-11] MEDS: risperiDONE 1 MG TAB PO SCH (08:28)
[2019-05-11] MEDS: DULoxetine 30 MG CAP PO SCH ×2 (08:29→20:59)
[2019-05-11] MEDS: Enoxaparin Sodium 40 MG/0.4 ML SYRINGE SC SCH (08:29)
[2019-05-11] MEDS: PHOS-NAK 1 PKT PACK PO SCH ×3 (08:29→20:59)
[2019-05-11] MEDS: Nystatin Powder 15 GM BOT TOP SCH ×3 (08:29→21:00)
[2019-05-11] MEDS ORDERED: Fluticasone Propionate HFA 44 MCG AER INH SCH (09:00)
[2019-05-11] MEDS ORDERED: Mometasone/Formoterol 120 PUFF INHALER INH SCH ×2 (09:00→18:30)
[2019-05-11] MEDS: Mometasone/Formoterol 120 PUFF INHALER INH SCH (19:34)
[2019-05-12] MEDS: Acetaminophen/Codeine 30-300mg Tablet PO PRN ×3 (04:42→20:51)
[2019-05-12] MEDS: CEFAZOLIN 2 GM in Premix Bag 1 BAG IVPB SCH ×3 (04:51→22:54)
--- NOTE | 2019-05-12 05:07 | PDOC.FM ---
- Subjective Subjective: Patient doing well this morning, reports that his breathing is improved. Still having diffuse skin peeling, though his legs are less tender. - Objective Vital Signs & Weight: Vital Signs (12 hours) Temp Pulse Resp BP Pulse Ox 05/11/19 19:15 98.8 F 83 18 129/68 98 Weight Admit Weight 110.28 kg Weight 116.21 kg I&O: 05/10/19 05/11/19 05/12/19 06:59 06:59 06:59 Intake Total 1280 1200 1200 Output Total 5470 2075 0906 Balance -1970 -3860 -1175 Result Diagrams: 05/12/19 03:30 05/12/19 03:30 Phys Exam - Physical Examination Constitutional: NAD HEENT: moist MMs, sclera anicteric Neck: supple, full ROM wheezing throughout, improved Cardiovascular: RRR, no significant murmur Gastrointestinal: soft, non-tender Musculoskeletal: pulses present 1+ edema BLE Neurological: normal sensation, moves all 4 limbs (with chronic restriction of the movement of his feet) Psychiatric: normal affect, A&O x 3 Deviation from normal: BLE cellulitis, diffuse skin peeling Dx/Plan (1) CHF (congestive heart failure) Code(s): I50.9 - HEART FAILURE, UNSPECIFIED Status: Chronic (2) COPD (chronic obstructive pulmonary disease) Status: Chronic (3) Cellulitis Code(s): L03.90 - CELLULITIS, UNSPECIFIED Status: Acute (4) Hx of necrotising fasciitis Code(s): Z87.39 - PERSONAL HISTORY OF DISEASES OF THE MS SYS AND CONN TISS Status: Acute (5) Hypotension Status: Resolved (6) Sepsis Code(s): A41.9 - SEPSIS, UNSPECIFIED ORGANISM Status: Resolved (7) Hepatitis C antibody test positive Code(s): R76.8 - OTHER SPECIFIED ABNORMAL IMMUNOLOGICAL FINDINGS IN SERUM Status: Acute - Plan Plan: 59yM admitted for BLE cellulitis. #Sepsis 2/2 diffuse cellulitis with possible staph aureus bacteremia, has history of necrotizing fasciitis - CT scan w/o signs of fluid collection or subq air, repeat CT scan 05/06 demonstrated increase in subcutaneous edema with no forming abscess appreciable , small bilateral pleural effusions and atelectasis noted -incentive spirometry ordered; discussed with nursing to please ensure he is using this - Transitioned to cefazolin from Vanc, Zosyn 05/[address] Candace schwarz, Fluconazole added 05/05; continue - Patient has PICC line, per Candace brock patient will likely need IV cefazolin for 4-6wks, more likely 6 due to patient's prolonged fever - Lumbar MRI shows spinal canal narrowing without evidence of infection invading spine - Patient was not tachycardic or febrile overnight; his vitals appear continue to reflect improvement in his infection - WBC 18.6 > 21.7 > 22.2 > 21.5 > 19.7 > 19.7 > 15.4 > 14 > 14.8 > 12.0 > 10.6 - 05/02 blood cultures: 2 positive for methacillin sensitive staph, 07/04 positive for coag neg staph - 05/03 blood cultures: both negative to date #CHF, reported - ECHO 05/04/19: EF 70-75%. LV hyperdynamic. - Continue to monitor fluid status. #COPD - Continue home regimen - symbicort (dulera) added 05/11 - incentive spirometry #Hep C + -[id number] viral copies -patient reports that he's know he's had it for 20 years, hx of IV Drug use -will put on discharge summary recommended treatment outpatient #Anemia -stable -patient received fluid bolus 05/06 and has been receiving fluids, likely dilutional -will continue to monitor #Diabetes -well controlled, continue current regimen #SVT, resolved - per report, patient went into SVT 05/07, which was resolved with valsalva maneuver - patient was moved to telemetry for further cardiac monitoring - overnight sinus rhythm - EP consulted, study showed AVNRT, ablation 05/10 #Hypotension, intermittent, resolved - stable overnight and this am - Responsive to fluids - Continue IVF resuscitation - Hold anti-hypertensives. Diet: Regular IVF: SL Dispo: Admitted to tele inpt for IV abx and cardiac monitoring Code: Full Addendum - Attending - Attending Attestation Date/Time: 05/12/19 8078 I personally evaluated the patient and discussed the management with Dr. Casillas. I agree with the History, Examination, Assessment and Plan documented above with any addition or exceptions noted below. The patient continues to shed skin. He is doing well from cardiac standpoint. Will need 6 weeks of IV antibiotics. Consulting case mgmt to arrange d/c to an [facility] bed.
[2019-05-12 06:21] LABS: #Basophils 0.1 thou/uL (0.0-0.2); #Eosinphils 0.9 thou/uL (0.0-0.7); #Lymphocytes 2.3 thou/uL (1.20-3.40); #Monocytes 0.7 thou/uL (0.11-0.59); #Neutrophils 6.7 thou/uL (1.40-6.50); %Basophils 0.6 % (0.0-1.0); %Eosinophils 8.4 % (0.0-10.0); %Lymphocytes 21.7 % (21.0-51.0); %Monocytes 6.3 % (0.0-10.0); %Neutrophils 62.9 % (42.0-75.0); Hemoglobin 9.8 g/dL (14.0-18.0); Mean Corpuscular HGB CONC 31.3 g/dL (32.0-36.0); Mean Corpuscular Hemoglobin 25.4 pg (27.0-31.0); Mean Corpuscular Volume 81.1 fL (78.0-98.0); Mean Platelet Volume 7.5 fL (7.4-10.4); Platelet Count 290 thou/uL (130-400); RBC Distribution Width 12.5 % (11.5-14.5); Red Blood Cell (RBC) Count 3.84 mill/uL (4.70-6.10); White Blood Cell (WBC) Count 10.6 thou/uL (4.8-10.8)
[2019-05-12 06:53] LABS: ALT (SGPT) 21 U/L (8-55); AST (SGOT) 28 U/L (5-34); Albumin 2.8 g/dL (3.5-5.0); Alkaline Phosphatase 51 U/L (40-110); Anion Gap 10 mmol/L (10-20); BUN (Urea Nitrogen) 6 mg/dL (8.4-25.7); Bilirubin, Total 0.3 mg/dL (0.2-1.2); Calc. Creatinine Clearance 174 mL/min (70-130); Calcium 8.2 mg/dL (7.8-10.44); Carbon Dioxide 26 mmol/L (22-29); Chloride 107 mmol/L (98-107); Estimated GFR-MDRD Greater than 90; Globulin 3.6 g/dL (2.4-3.5); Glucose 96 mg/dL (70-105); Potassium 4.2 mmol/L (3.5-5.1); Protein, Total 6.4 g/dL (6.0-8.3); Sodium 139 mmol/L (136-145)
[2019-05-12] MEDS: Mometasone/Formoterol 120 PUFF INHALER INH SCH ×2 (07:30→19:37)
[2019-05-12] MEDS: DULoxetine 30 MG CAP PO SCH ×2 (10:02→20:51)
[2019-05-12] MEDS: Fluconazole 100 MG TAB PO SCH (10:02)
[2019-05-12] MEDS: Enoxaparin Sodium 40 MG/0.4 ML SYRINGE SC SCH (10:02)
[2019-05-12] MEDS: PHOS-NAK 1 PKT PACK PO SCH ×3 (10:03→20:52)
[2019-05-12] MEDS: Nystatin 500,000 UNITS/5 ML UDCUP SSW SCH ×4 (10:03→20:52)
[2019-05-12] MEDS: risperiDONE 1 MG TAB PO SCH (10:03)
[2019-05-12] MEDS: Nystatin Powder 15 GM BOT TOP SCH ×3 (10:04→20:53)
[2019-05-12] MEDS: hydrOXYzine 25 MG TAB PO PRN ×2 (10:12→20:52)
--- NOTE | 2019-05-13 05:24 | PDOC.FM ---
- Subjective Subjective: Patient doing well this morning, reports that his breathing is improved. Skin still continues to peel, legs are improved with less swelling and they are less tender. - Objective Vital Signs & Weight: Vital Signs (12 hours) Temp Pulse Resp BP Pulse Ox 05/13/19 04:00 98.2 F 86 14 146/73 H 93 L 05/12/19 20:46 99.1 F 82 18 137/75 94 L Weight Admit Weight 110.28 kg Weight 116.21 kg I&O: 05/11/19 05/12/19 05/13/19 06:59 06:59 06:59 Intake Total 1200 2320 1000 Output Total 2719 5918 8431 Balance -4578 -5753 -6936 Result Diagrams: 05/13/19 05:12 05/13/19 05:12 Phys Exam - Physical Examination Constitutional: NAD HEENT: moist MMs, sclera anicteric Neck: supple, full ROM scant wheezing throughout, improved Cardiovascular: RRR, no significant murmur Gastrointestinal: soft, non-tender Musculoskeletal: pulses present trace edema Neurological: normal sensation, moves all 4 limbs chronic foot motor reduction Psychiatric: A&O x 3 Deviation from normal: diffuse skin peeling, BLE cellulitis appears improved Dx/Plan (1) CHF (congestive heart failure) Code(s): I50.9 - HEART FAILURE, UNSPECIFIED Status: Chronic (2) COPD (chronic obstructive pulmonary disease) Status: Chronic (3) Cellulitis Code(s): L03.90 - CELLULITIS, UNSPECIFIED Status: Acute (4) Hx of necrotising fasciitis Code(s): Z87.39 - PERSONAL HISTORY OF DISEASES OF THE MS SYS AND CONN TISS Status: Acute (5) Hypotension Status: Resolved (6) Sepsis Code(s): A41.9 - SEPSIS, UNSPECIFIED ORGANISM Status: Resolved (7) Hepatitis C antibody test positive Code(s): R76.8 - OTHER SPECIFIED ABNORMAL IMMUNOLOGICAL FINDINGS IN SERUM Status: Acute - Plan Plan: 59yM admitted for BLE cellulitis. #Sepsis 2/2 diffuse cellulitis with possible staph aureus bacteremia, has history of necrotizing fasciitis - CT scan w/o signs of fluid collection or subq air, repeat CT scan 05/06 demonstrated increase in subcutaneous edema with no forming abscess appreciable , small bilateral pleural effusions and atelectasis noted -incentive spirometry ordered; discussed with nursing to please ensure he is using this - Transitioned to cefazolin from Vanc, Zosyn 05/[address] Candace schwarz, Fluconazole added 05/05; continue - Patient has PICC line, per Candace brock patient will likely need IV cefazolin for 4-6wks, more likely 6 due to patient's prolonged fever - Lumbar MRI shows spinal canal narrowing without evidence of infection invading spine - Patient was not tachycardic or febrile overnight; his vitals appear continue to reflect improvement in his infection - WBC 18.6 > 21.7 > 22.2 > 21.5 > 19.7 > 19.7 > 15.4 > 14 > 14.8 > 12.0 > 10.6 > 10.8 - 05/02 blood cultures: 1/2 positive for methacillin sensitive staph, 1/2 positive for coag neg staph - 05/03 blood cultures: both negative to date #CHF, reported - ECHO 05/04/19: EF 70-75%. LV hyperdynamic. - Continue to monitor fluid status. #COPD - Continue home regimen - symbicort (dulera) added 05/11 - incentive spirometry #Hep C + -[id number] viral copies -patient reports that he's know he's had it for 20 years, hx of IV Drug use -will put on discharge summary recommended treatment outpatient #Anemia -stable -will continue to monitor #Diabetes -well controlled, continue current regimen #SVT, resolved - per report, patient went into SVT 05/07, which was resolved with valsalva maneuver - patient was moved to telemetry for further cardiac monitoring - overnight sinus rhythm - EP consulted, study showed AVNRT, ablation 05/10 #Hypotension, intermittent, resolved - stable overnight and this am - Responsive to fluids - Continue IVF resuscitation - Hold anti-hypertensives. Diet: Regular IVF: SL Dispo: Admitted to [facility] in for IV abx and cardiac monitoring, medically stable for transfer to [facility] at this time. Will need continued IV abx and Hepatitis C treatment once he is transferred to the [facility]. Code: Full Addendum - Attending - Attending Attestation Date/Time: 05/13/19 6018 I personally evaluated the patient and discussed the management with Dr. Casillas. I agree with the History, Examination, Assessment and Plan documented above with any addition or exceptions noted below. Patient states he is feeling better. Infection is responding to antibiotics. Will ask case mgmt to coordinate d/c to [facility]. He needs 6 weeks of IV antibiotics.
[2019-05-13 05:50] LABS: #Basophils 0.1 thou/uL (0.0-0.2); #Eosinphils 0.9 thou/uL (0.0-0.7); #Lymphocytes 2.6 thou/uL (1.20-3.40); #Monocytes 0.8 thou/uL (0.11-0.59); #Neutrophils 6.4 thou/uL (1.40-6.50); %Basophils 0.6 % (0.0-1.0); %Eosinophils 8.7 % (0.0-10.0); %Lymphocytes 24.4 % (21.0-51.0); %Neutrophils 59.3 % (42.0-75.0); Hemoglobin 10.9 g/dL (14.0-18.0); Mean Corpuscular HGB CONC 31.9 g/dL (32.0-36.0); Mean Corpuscular Hemoglobin 25.6 pg (27.0-31.0); Mean Corpuscular Volume 80.4 fL (78.0-98.0); Mean Platelet Volume 7.3 fL (7.4-10.4); Platelet Count 337 thou/uL (130-400); RBC Distribution Width 12.4 % (11.5-14.5); Red Blood Cell (RBC) Count 4.24 mill/uL (4.70-6.10); White Blood Cell (WBC) Count 10.8 thou/uL (4.8-10.8)
[2019-05-13] MEDS: CEFAZOLIN 2 GM in Premix Bag 1 BAG IVPB SCH ×3 (06:12→21:14)
[2019-05-13 06:17] LABS: ALT (SGPT) 21 U/L (8-55); AST (SGOT) 27 U/L (5-34); Albumin 3.1 g/dL (3.5-5.0); Alkaline Phosphatase 55 U/L (40-110); Anion Gap 10 mmol/L (10-20); BUN (Urea Nitrogen) 7 mg/dL (8.4-25.7); Bilirubin, Total 0.3 mg/dL (0.2-1.2); Calc. Creatinine Clearance 166 mL/min (70-130); Calcium 8.6 mg/dL (7.8-10.44); Carbon Dioxide 22 mmol/L (22-29); Chloride 109 mmol/L (98-107); Estimated GFR-MDRD Greater than 90; Globulin 4.1 g/dL (2.4-3.5); Glucose 97 mg/dL (70-105); Potassium 4.4 mmol/L (3.5-5.1); Protein, Total 7.2 g/dL (6.0-8.3); Sodium 137 mmol/L (136-145)
[2019-05-13] MEDS: Mometasone/Formoterol 120 PUFF INHALER INH SCH ×2 (08:08→19:30)
[2019-05-13] MEDS: risperiDONE 1 MG TAB PO SCH (08:37)
[2019-05-13] MEDS: Enoxaparin Sodium 40 MG/0.4 ML SYRINGE SC SCH (08:37)
[2019-05-13] MEDS: Nystatin 500,000 UNITS/5 ML UDCUP SSW SCH ×4 (08:37→21:09)
[2019-05-13] MEDS: DULoxetine 30 MG CAP PO SCH ×2 (08:38→21:09)
[2019-05-13] MEDS: Nystatin Powder 15 GM BOT TOP SCH ×3 (08:38→21:10)
[2019-05-13] MEDS: Fluconazole 100 MG TAB PO SCH (08:38)
[2019-05-13] MEDS: Acetaminophen/Codeine 30-300mg Tablet PO PRN ×4 (08:50→21:12)
[2019-05-13] MEDS: hydrOXYzine 25 MG TAB PO PRN ×3 (08:50→21:13)
[2019-05-13] MEDS: PHOS-NAK 1 PKT PACK PO SCH ×3 (08:50→21:11)
[2019-05-13 13:16] VITALS: BMI 35.7
--- NOTE | 2019-05-13 16:19 | PDOC.CPN ---
- Subjective Date: 05/13/19 Time: 16:17 Interval history: EP PROGRESS NOTE: 05/13/19 follow up for SVT. low grade fever over weekenf. No heart racing, palpitations, chest pain, pressure, or passing out. S/P ablation dfoor AVNRT 05/10/19. No groin site isssues aty catheter site. - Review of Systems General: reports: fever/chills Respiratory: denies: cough, congestion, shortness of breath, exercise intolerance Cardiovascular: denies: chest pain, palpitation, edema, paroxysmal nocturnal dyspnea, orthopnea Musculoskeletal: denies: pain, tenderness, stiffness, swelling, arthritis/ arthralgias Neurological: denies: numbness, syncope, seizure, weakness - Objective Allergies/Adverse Reactions: Allergies Allergy/AdvReac Type Severity Reaction Status Date / Time aspirin Allergy Verified 05/03/19 03:25 clindamycin Allergy Nausea Verified 05/03/19 03:25 ibuprofen [From Motrin] Allergy Verified 05/03/19 03:25 Sulfa (Sulfonamide Allergy Hives Verified 05/03/19 03:25 Antibiotics) Visit Medications: Current Medications Acetaminophen (Tylenol) 650 mg PO Q4H PRN PRN Reason: Headache/Fever Last Admin: 05/10/19 15:22 Dose: 650 mg Acetaminophen/Codeine Phosphate (Tylenol #3) 1 tab PO Q4H PRN PRN Reason: Mild Pain (1-3) Last Admin: 05/10/19 20:15 Dose: 1 tab Acetaminophen/Codeine Phosphate (Tylenol #3) 2 tab PO Q4H PRN PRN Reason: Moderate Pain (4-6) Last Admin: 05/13/19 12:36 Dose: 2 tab Dextrose/Water (Dextrose 50%) 25 gm SLOW IVP PRN PRN PRN Reason: Hypoglycemia Duloxetine HCl (Cymbalta) 30 mg PO BID [facility] Last Admin: 05/13/19 08:38 Dose: 30 mg Emollient Cream (Hydrocerin Cream) 120 gm TOP PRN PRN PRN Reason: Dry Skin Enoxaparin Sodium (Lovenox) 40 mg SC 0900 [facility] Last Admin: 05/13/19 08:37 Dose: 40 mg Fluconazole (Diflucan) 150 mg PO DAILY [facility] Last Admin: 05/13/19 08:38 Dose: 150 mg Glucagon (Glucagon) 1 mg IM PRN PRN PRN Reason: Hypoglycemia Hydroxyzine HCl (Atarax) 25 mg PO QID PRN PRN Reason: Itching Last Admin: 05/13/19 08:50 Dose: 25 mg Dextrose/Water (D5w) 1,000 mls @ 0 mls/hr IV .Q0M PRN PRN Reason: Hypoglycemia Cefazolin Sodium/Dextrose 2 gm (/ Device) 50 mls @ 100 mls/hr IVPB Q8HR [facility] Last Admin: 05/13/19 14:44 Dose: 50 mls Insulin Human Lispro (Humalog) 0 units SC .MILD SLIDING SCALE PRN PRN Reason: Mild Correctional Scale Last Admin: 05/04/19 21:17 Dose: 2 unit Miscellaneous Medication (Phos-Nak) 1 pkt PO TID [facility] Last Admin: 05/13/19 14:44 Dose: 1 pkt Mometasone Furoate/Formoterol Fumar (Dulera 200 Mcg/5 Mcg Inhaler) 2 puff INH BID-RT [facility] Last Admin: 05/13/19 08:08 Dose: 2 puff Nystatin (Mycostatin Powder) 1 gm TOP TID [facility] Last Admin: 05/13/19 14:45 Dose: 1 gm Nystatin (Mycostatin) 500,000 units SSW QID [facility] Last Admin: 05/13/19 12:32 Dose: 500,000 units Ondansetron HCl (Zofran) 4 mg IVP Q6H PRN PRN Reason: Nausea/Vomiting Pantoprazole Sodium (Protonix) 40 mg PO DAILY [facility] Last Admin: 05/13/19 08:38 Dose: 40 mg Risperidone (Risperidone) 4 mg PO DAILY [facility] Last Admin: 05/13/19 08:37 Dose: 4 mg Sodium Chloride (Flush - Normal Saline) 10 ml IVF Q12HR [facility] Last Admin: 05/13/19 09:00 Dose: 10 ml Sodium Chloride (Flush - Normal Saline) 10 ml IVF PRN PRN PRN Reason: Saline Flush Sodium Chloride (Flush - Normal Saline) 10 ml IVF PRN PRN PRN Reason: Saline Flush Throat Lozenges (Cepastat Lozenges) 1 traci PO Q2H PRN PRN Reason: Sore Throat Last Admin: 05/06/19 08:06 Dose: 1 traci Vital Signs & Weight: Vital Signs Temp Pulse Resp BP Pulse Ox 05/13/19 11:40 98.1 F 79 16 112/58 L 95 05/13/19 08:36 98.8 F 92 18 142/72 H 94 L 05/13/19 08:08 81 14 99 Admit Weight 243 lb 2 oz Weight 256 lb 3.2 oz - Physical Exam General: alert & oriented x3, no apparent distress Neck: no JVD/HJR, no bruit Cardiac: no murmur, regular rate, regular rhythm Lungs: clear to auscultation, normal exam Skin: other (Peeling sdry skin all over. Improving.) - Labs Result Diagrams: 05/13/19 05:12 05/13/19 05:12 Troponin/CKMB Troponin I Less than 0.010 ng/mL (< 0.028) 05/07/19 16:59 - Assessment/Plan Assessment/Plan: 1. SVT - AVNRT by EPS 05/10/19/. S/p Slowpathway modification. In SR. No recurrence. - unclear what was done to terminate the episode. patient cannot recall 2. Cellulitis - resolving -ID managing anbx. -LGF over HS with Tmax ~99.8 3. Sepsis/SIRS. dr Maria follows. 4. Obesity 5. h/o CHF -Ef 70% 6. Edema 7. Bacteremia Stable from EP standpoint. Would Sign off. Call if further questions/issues.
--- NOTE | 2019-05-14 05:09 | PDOC.FM ---
- Subjective Subjective: Patient doing well this morning. Denies cp, sob. Reports diminished tenderness and swelling of his legs; continued skin peeling. - Objective Vital Signs & Weight: Vital Signs (12 hours) Temp Pulse Resp BP Pulse Ox 05/14/19 04:00 98.3 F 83 16 136/68 95 05/13/19 21:01 98.9 F 78 18 138/77 94 L Weight Admit Weight 110.28 kg Weight 116.21 kg I&O: 05/12/19 05/13/19 05/14/19 06:59 06:59 06:59 Intake Total 2320 2040 2100 Output Total 4170 0025 6652 Balance -9704 -3280 -362 Result Diagrams: 05/14/19 04:51 05/14/19 04:51 EKG Reviewed by me: Yes (sinus 80s) Phys Exam - Physical Examination Constitutional: NAD HEENT: moist MMs, sclera anicteric Neck: supple, full ROM Respiratory: clear to auscultation bilateral Cardiovascular: RRR, no significant murmur Gastrointestinal: soft, non-tender Musculoskeletal: pulses present trace edema, much improved Neurological: moves all 4 limbs decreased movement of feet, chronic Psychiatric: normal affect, A&O x 3 Deviation from normal: BLE cellulitis, diffuse skin peeling Dx/Plan (1) CHF (congestive heart failure) Code(s): I50.9 - HEART FAILURE, UNSPECIFIED Status: Chronic (2) COPD (chronic obstructive pulmonary disease) Status: Chronic (3) Cellulitis Code(s): L03.90 - CELLULITIS, UNSPECIFIED Status: Acute (4) Hx of necrotising fasciitis Code(s): Z87.39 - PERSONAL HISTORY OF DISEASES OF THE MS SYS AND CONN TISS Status: Acute (5) Hypotension Status: Resolved (6) Sepsis Code(s): A41.9 - SEPSIS, UNSPECIFIED ORGANISM Status: Resolved (7) Hepatitis C antibody test positive Code(s): R76.8 - OTHER SPECIFIED ABNORMAL IMMUNOLOGICAL FINDINGS IN SERUM Status: Acute - Plan Plan: 59yM admitted for BLE cellulitis. #Sepsis 2/2 diffuse cellulitis with staph aureus bacteremia, has history of necrotizing fasciitis - CT scan w/o signs of fluid collection or subq air, repeat CT scan 05/06 demonstrated increase in subcutaneous edema with no forming abscess appreciable , small bilateral pleural effusions and atelectasis noted -incentive spirometry ordered; discussed with nursing to please ensure he is using this - Transitioned to cefazolin from Vanc, Zosyn 05/[address] Candace schwarz, Fluconazole added 05/05 - Patient has PICC line, per Candace brock patient will likely need IV cefazolin 6wks due to patient's prolonged fever - Lumbar MRI shows spinal canal narrowing without evidence of infection invading spine - Patient was not tachycardic or febrile overnight; his vitals appear to continue to reflect improvement in his infection - WBC 18.6 > 21.7 > 22.2 > 21.5 > 19.7 > 19.7 > 15.4 > 14 > 14.8 > 12.0 > 10.6 > 10.8 > 9.6 - 05/02 blood cultures: 1/2 positive for methacillin sensitive staph, 1/2 positive for coag neg staph - 05/03 blood cultures: both negative to date #CHF, reported - ECHO 05/04/19: EF 70-75%. LV hyperdynamic. - Continue to monitor fluid status. 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 Diet: CC IVF: SL Dispo: Admitted to [facility] in for IV abx and cardiac monitoring, medically stable for transfer to [facility] at this time. Will need continued IV abx and Hepatitis C treatment once he is transferred to the [facility]. Code: Full Addendum - Attending - Attending Attestation Date/Time: 05/14/19 1030 I personally evaluated the patient and discussed the management with Dr. Caslilas. I agree with the History, Examination, Assessment and Plan documented above with any addition or exceptions noted below. The patient was sitting up in a chair. Cellulitis is improving. Continue IV antibiotics and wait on [facility] bed.
[2019-05-14 05:22] LABS: #Eosinphils 0.8 thou/uL (0.0-0.7); #Lymphocytes 2.6 thou/uL (1.20-3.40); #Monocytes 0.8 thou/uL (0.11-0.59); #Neutrophils 5.4 thou/uL (1.40-6.50); %Basophils 0.4 % (0.0-1.0); %Eosinophils 8.2 % (0.0-10.0); %Neutrophils 56.4 % (42.0-75.0); Hemoglobin 11.5 g/dL (14.0-18.0); Mean Corpuscular HGB CONC 31.8 g/dL (32.0-36.0); Mean Corpuscular Hemoglobin 25.7 pg (27.0-31.0); Mean Corpuscular Volume 80.7 fL (78.0-98.0); Mean Platelet Volume 7.2 fL (7.4-10.4); Platelet Count 380 thou/uL (130-400); RBC Distribution Width 12.6 % (11.5-14.5); Red Blood Cell (RBC) Count 4.48 mill/uL (4.70-6.10); White Blood Cell (WBC) Count 9.6 thou/uL (4.8-10.8)
[2019-05-14 05:30] LABS: Anion Gap 10 mmol/L (10-20); BUN (Urea Nitrogen) 11 mg/dL (8.4-25.7); Calc. Creatinine Clearance 166 mL/min (70-130); Calcium 8.7 mg/dL (7.8-10.44); Carbon Dioxide 23 mmol/L (22-29); Chloride 109 mmol/L (98-107); Estimated GFR-MDRD Greater than 90; Glucose 100 mg/dL (70-105); Potassium 4.4 mmol/L (3.5-5.1); Sodium 138 mmol/L (136-145)
[2019-05-14] MEDS: CEFAZOLIN 2 GM in Premix Bag 1 BAG IVPB SCH ×3 (05:59→22:50)
[2019-05-14] MEDS: Mometasone/Formoterol 120 PUFF INHALER INH SCH ×2 (07:17→18:37)
[2019-05-14] MEDS: Fluconazole 100 MG TAB PO SCH (09:36)
[2019-05-14] MEDS: risperiDONE 1 MG TAB PO SCH (09:36)
[2019-05-14] MEDS: Nystatin 500,000 UNITS/5 ML UDCUP SSW SCH ×4 (09:36→20:14)
[2019-05-14] MEDS: PHOS-NAK 1 PKT PACK PO SCH ×3 (09:37→20:14)
[2019-05-14] MEDS: Enoxaparin Sodium 40 MG/0.4 ML SYRINGE SC SCH (09:37)
[2019-05-14] MEDS: DULoxetine 30 MG CAP PO SCH ×2 (09:37→20:14)
[2019-05-14] MEDS: Nystatin Powder 15 GM BOT TOP SCH ×3 (09:38→20:15)
[2019-05-14] MEDS: Acetaminophen/Codeine 30-300mg Tablet PO PRN ×2 (10:28→18:07)
[2019-05-14] MEDS: hydrOXYzine 25 MG TAB PO PRN (18:07)
[2019-05-14] MEDS ORDERED: Mometasone/Formoterol 120 PUFF INHALER INH SCH (18:30)
--- NOTE | 2019-05-15 05:12 | PDOC.FM ---
- Subjective Subjective: Patient is doing well. Discussed that we are still waiting [facility], placement agreeable to plan of care at this time. Denies cp, sob. Reports continued bm without difficulty. Reports decreased pain and swelling of lower extremities. - Objective Vital Signs & Weight: Vital Signs (12 hours) Temp Pulse Resp BP Pulse Ox 05/15/19 04:00 98.6 F 80 14 108/62 94 L 05/15/19 00:00 88 18 94 L 05/14/19 20:00 97.9 F 72 18 136/83 94 L Weight Admit Weight 110.28 kg Weight 116.21 kg I&O: 05/13/19 05/14/19 05/15/19 06:59 06:59 06:59 Intake Total 2040 2980 2040 Output Total 5967 3450 1300 Balance -3885 -470 740 Result Diagrams: 05/14/19 04:51 05/14/19 04:51 EKG Reviewed by me: Yes (sinus 70s, BBB) Phys Exam - Physical Examination Constitutional: NAD HEENT: moist MMs, sclera anicteric Neck: supple, full ROM Respiratory: no wheezing, clear to auscultation bilateral Cardiovascular: RRR, no significant murmur Gastrointestinal: soft, non-tender Musculoskeletal: pulses present scant edema BLE Neurological: moves all 4 limbs chronically reduced feet movement; can move all 4 limbs Psychiatric: normal affect, A&O x 3 Deviation from normal: BLE cellulitis, improved; diffuse skin peeling Dx/Plan (1) CHF (congestive heart failure) Code(s): I50.9 - HEART FAILURE, UNSPECIFIED Status: Chronic (2) COPD (chronic obstructive pulmonary disease) Status: Chronic (3) Cellulitis Code(s): L03.90 - CELLULITIS, UNSPECIFIED Status: Acute (4) Hx of necrotising fasciitis Code(s): Z87.39 - PERSONAL HISTORY OF DISEASES OF THE MS SYS AND CONN TISS Status: Acute (5) Hypotension Status: Resolved (6) Sepsis Code(s): A41.9 - SEPSIS, UNSPECIFIED ORGANISM Status: Resolved (7) Hepatitis C antibody test positive Code(s): R76.8 - OTHER SPECIFIED ABNORMAL IMMUNOLOGICAL FINDINGS IN SERUM Status: Acute - Plan Plan: 59yM admitted for BLE cellulitis. #Cellulitis with staph aureus bacteremia, has history of necrotizing fasciitis, stable for discharge - CT scan w/o signs of fluid collection or subq air, repeat CT scan 05/06 demonstrated increase in subcutaneous edema with no forming abscess appreciable , small bilateral pleural effusions and atelectasis noted -incentive spirometry ordered; discussed with nursing to please ensure he is using this - Transitioned to cefazolin from Vanc, Zosyn 05/[address] Candace schwarz, Fluconazole added 05/05 - Patient has PICC line, per Candace brock patient will likely need IV cefazolin 6wks due to patient's prolonged fever - Lumbar MRI shows spinal canal narrowing without evidence of infection invading spine - Patient was not tachycardic or febrile overnight; his vitals appear to continue to reflect improvement in his infection - WBC 18.6 > 21.7 > 22.2 > 21.5 > 19.7 > 19.7 > 15.4 > 14 > 14.8 > 12.0 > 10.6 > 10.8 > 9.6 - 05/02 blood cultures: 1/2 positive for methacillin sensitive staph, 1/2 positive for coag neg staph - 05/03 blood cultures: both negative to date -stable for discharge to [facility] at this time #CHF, stable for discharge - ECHO 05/04/19: EF 70-75%. LV hyperdynamic. - Continue to monitor fluid status. #COPD, stable for discharge - Continue home regimen - symbicort (dulera) added 05/11 - incentive spirometry #Hep C +, stable for discharge -588215 viral copies -patient reports that he's know he's had it for 20 years, hx of IV Drug use -will put on discharge summary recommended treatment outpatient #Anemia, stable for discharge -stable -will continue to monitor #Diabetes, stable for discharge -well controlled, continue current regimen #SVT, resolved - per report, patient went into SVT 05/07, which was resolved with valsalva maneuver - patient was moved to telemetry for further cardiac monitoring - overnight sinus rhythm - EP consulted, study showed AVNRT, 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 Diet: CC IVF: SL Dispo: Admitted to [facility] in for IV abx and cardiac monitoring, medically stable for transfer to [facility] at this time. Will need continued IV abx and Hepatitis C treatment once he is transferred to the [facility]. Code: Full Addendum - Attending - Attending Attestation Date/Time: 05/15/19 5134 I personally evaluated the patient and discussed the management with Dr. Casillas. I agree with the History, Examination, Assessment and Plan documented above with any addition or exceptions noted below. Patient is doing well. Needs continued antibiotics for 6 weeks. Waiting on [facility] bed.
[2019-05-15] MEDS: CEFAZOLIN 2 GM in Premix Bag 1 BAG IVPB SCH ×2 (06:35→13:51)
[2019-05-15] MEDS: Mometasone/Formoterol 120 PUFF INHALER INH SCH ×2 (07:52→18:52)
[2019-05-15] MEDS: Enoxaparin Sodium 40 MG/0.4 ML SYRINGE SC SCH (09:59)
[2019-05-15] MEDS: PHOS-NAK 1 PKT PACK PO SCH ×2 (09:59→16:52)
[2019-05-15] MEDS: Fluconazole 100 MG TAB PO SCH (09:59)
[2019-05-15] MEDS: Nystatin 500,000 UNITS/5 ML UDCUP SSW SCH ×3 (10:00→16:52)
[2019-05-15] MEDS: risperiDONE 1 MG TAB PO SCH (10:00)
[2019-05-15] MEDS: Nystatin Powder 15 GM BOT TOP SCH ×2 (10:00→16:55)
[2019-05-15] MEDS: DULoxetine 30 MG CAP PO SCH (10:00)
[2019-05-15] MEDS: hydrOXYzine 25 MG TAB PO PRN ×2 (10:10→16:53)
[2019-05-15] MEDS: Acetaminophen/Codeine 30-300mg Tablet PO PRN ×2 (10:10→16:52)
[2019-05-15 19:41] VITALS: BP 117/59; TEMP 97.8
--- NOTE | 2019-05-16 15:13 | DIS ---
DATE OF ADMISSION: 05/03/2019 DATE OF DISCHARGE: 05/15/2019 ADMITTING RESIDENT: Niraj Allred DO ADMITTING ATTENDING: Magen Aguilar MD DISCHARGE ATTENDING: Teresa Vega MD DISCHARGE RESIDENT: Milady Casillas MD CONSULTATIONS: Case Management, Electrophysiology (Dr. Zee), General Surgery ( Dr. Douglas), Infectious Disease (Dr. Maria). PROCEDURES: RF ablation, PICC line placement. PRIMARY DIAGNOSES: Cellulitis, Staph aureus bacteremia, hepatitis C, anemia, supraventricular tachycardia resolved, hypotension, resolved. SECONDARY DIAGNOSES: History of necrotizing fasciitis, chronic obstructive pulmonary disease, congestive heart failure, diabetes mellitus. DISCHARGE MEDICATIONS: Cefazolin 2 g IV q.8 hours x42 days 75 mg clopidogrel p.o. daily 30 mg duloxetine p.o. b.i.d. 2 puffs Dulera inhaled b.i.d. 1 g nystatin topical t.i.d. 1 packet Phos-NaK p.o. t.i.d. 50 mg of Benadryl p.o. b.i.d. one tab risperidone 4 mg p.o. daily. Discontinued medications: 1. Tylenol. 2. Tylenol with codeine. 3. Senokot lozenges. 4. Lovenox. 5. Fluconazole. 6. Hydroxyzine. 7. Nystatin. 8. Zofran. 9. Pantoprazole. HISTORY OF PRESENT ILLNESS/HOSPITAL COURSE: The patient is a 59-year-old male who [facility] with a complaint of an erythematous rash in the abdomen and bilateral lower legs for 2 weeks, failed outpatient antibiotic treatment at the [facility]. The patient stated that he also had a fever, body aches, and chills. He has a history of necrotizing fasciitis, infection to the left abdomen and inguinal region requiring surgical excision in the past. The patient received vanc and cefepime in the ED, and then was transitioned to vanc and Zosyn. General Surgery was consulted and did not recommend surgery. Fluconazole was also added to the vanc and Zosyn regimen for possible fungal component. Infectious Disease was consulted and cefazolin was recommended, patient was transitioned and started to make improvement. The patient's skin peeled diffusely throughout the later half of admission, and it was thought by Dr. 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 He also recommended that we continue the IV antibiotic treatment for 6 weeks due to delayed resolution of his fever. The patient had a run of SVT on 05/07, that was resolved with Valsalva maneuver. Electrophysiology was consulted and electrophysiology study with ablation was recommended, which was carried out on 05/10. The patient was then found to be stable to transfer to the [facility] and hence the paperwork was started. It should be noted that the patient was found to be hepatitis C positive during the hospitalization with a viral load of 168,000, and it is recommend that the patient be treated for this at [facility]. The patient was evaluated on the day of discharge and was stable for transfer to the [facility] with continued IV antibiotics. DISPOSITION: Stable. DISCHARGE INSTRUCTIONS: 1. Location: [facility]. 2. Diet: Heart healthy, carb conscious. 3. Activity: As tolerated. 4. Follow up with [facility] PCP within 3 days. Patient will need hepatitis C treatment. Patient will need continued IV cefazolin treatment for 6 weeks through his PICC line, and he will need weekly CBC monitoring. Job ID: [id number] [facility]
--- NOTE | 2019-05-17 05:03 | PQF ---
[employer] Stringed Instrument [employer]airer [employer] Win[employer] SE Jerez RICARDO S MD [id number] [facility] [id number] CLINICAL DOCUMENTATION CLARIFICATION FORM: POST DISCHARGE Addendum to original discharge summary date: ____ Late entry note date: __ DATE: 05/17/2019 ATTN:MARIO ALBERTO BORRERO MD Please exercise your independent, professional judgment in responding to the clarification form. Clinical indicators are provided on the bottom of this form for your review Please check appropriate box(s) to clarify if the following diagnosis has been ruled in or ruled out: _Sepstic Shock____(CDI/Coding list diagnosis here) [ ] Ruled in diagnosis [ ] Continue to treat [ ] Resolved [ ] Ruled out diagnosis [ ] Cannot rule out diagnosis [ ] Other diagnosis [ ] Unable to determine In addition, please specify: Present on Admission (POA): [ ] Yes [ ] No [ ] Unable to determine For continuity of documentation, please document condition throughout progress notes and discharge summary. Thank You. CLINICAL INDICATORS - SIGNS / SYMPTOMS / LABS Septic shock - Documented in H&P on 05/03 by Chelsi Perez Fever, chills , body aches , hx of necrotizing fascitis - [facility] medicine H&P on 05/03 by Brigida Healy BP-91/57 - [facility] medicine H&P on 05/03 by Brigida Healy Cellulitis w/sepsis and Hx of necrotizing fascitis - Cellulitis w/sepsis -Hx of nec fascitis Diffuse erythroderma, probably due to staphylococcus toxic shock like syndrome - Documented in PNs on 05/10 RISK FACTORS HTN CHF SVT TREATMENTS Responsive to fluids in ED - [facility] medicine H&P on 05/03 by Brigida Healy Continue IVF resucitation and hold anti hypertensives - [facility] medicine H&P on 05/03 by Brigida Healy has received 3.5l bolus to obtain his current blood pressure - Documented in H& P on 05/03 by Chelsi Perez MICU for levophed infusion - Documented in H&P on 05/03 by Chelsi Perez (This form is maintained as a part of the permanent medical record) 2014 [employer] All Rights Reserved [email or web address] [not provided] MTDD
--- NOTE | 2019-05-18 13:37 | EKG ---
Test Reason : Blood Pressure : / mmHG Vent. Rate : 096 BPM Atrial Rate : 096 BPM P-R Int : 136 ms QRS Dur : 136 ms QT Int : 394 ms P-R-T Axes : 057 -14 029 degrees QTc Int : 497 ms Sinus rhythm with Premature atrial complexes Right bundle branch block Abnormal ECG Confirmed by LAUREN DUVAL ([id number]), managing editor FRAN NIETO ([id number]) on 05/18/2019 1:36:59 PM Referred By: Confirmed By:LAUREN DUVAL
--- NOTE | 2019-05-23 04:01 | PQF ---
[employer] Instructor [employer] Crystal Reports Winform ViewerSE ORO GERA CAMDEN [id number] [facility] [id number] CLINICAL DOCUMENTATION CLARIFICATION FORM: POST DISCHARGE Addendum to original discharge summary date: ____ Late entry note date: __ DATE: 05/23/2019 ATTN: CAMDEN BOSS Please exercise your independent, professional judgment in responding to the clarification form. Clinical indicators are provided on the bottom of this form for your review Please check appropriate box(s): HEART FAILURE: A. TYPE: [ ] Systolic / HFrEF [X ] Diastolic / HFpEF [ ] Combined Systolic / Diastolic B. ACUITY [ ] Acute [ ] Acute on Chronic [X ] Chronic [ ] Other diagnosis [ ] Unable to determine In addition, please specify: Present on Admission (POA): [ ] Yes [ ] No [ ] Unable to determine For continuity of documentation, please document condition throughout progress notes and discharge summary. Thank You. CLINICAL INDICATORS - SIGNS / SYMPTOMS / LABS Hx of CHF - Documented in Family H&Chandana 05/03 by Brigida Uribe DO BNP level 52.9 on 05/07 - Documented in Laboratory result He had episode of SVT - Documented in Operative report on 05/10 by Camden Boss Hx of Ejection fraction 70% - Documented in Cardiology PNs on 05/13 Edema - Documented in Cardiology PNs on 05/13 RISKS: HTN Toxic shock like syndrome COPD RT BBB - Documented in Operative report on 05/10 by Camden Boss TREATMENTS: Electrocardiogram EPS study and ablation [employer] Reports Winform Viewer (This form is maintained as a part of the permanent medical record) 2014 [employer]. All Rights Reserved [email or web address] [not [email or web address]] [email or web address]
== END 2019-05-15 19:44 | disposition short-term general hospital (02) | DRG 854 ==
LOC: ERS 21:45 → T4-B 05-03 02:21 → 2NO 05-07 16:43
PROVIDERS: ADMIT Emergency Medicine; ATTEND Emergency Medicine
PROC: 02HV33Z Insertion of Infusion Device into Superior Vena Cava, Percutaneous Approach (ICD-10-PCS; principal; 2019-05-07)
PROC: B548ZZA Ultrasonography of Superior Vena Cava, Guidance (ICD-10-PCS; 2019-05-07)
PROC: 02583ZZ Destruction of Conduction Mechanism, Percutaneous Approach (ICD-10-PCS; 2019-05-10)
PROC: 02K83ZZ Map Conduction Mechanism, Percutaneous Approach (ICD-10-PCS; 2019-05-10)
PROC: 4A023FZ Measurement of Cardiac Rhythm, Percutaneous Approach (ICD-10-PCS; 2019-05-10)
PROC: 4A0234Z Measurement of Cardiac Electrical Activity, Percutaneous Approach (ICD-10-PCS; 2019-05-10)
DX: A48.3 Toxic shock syndrome (principal); I47.1 Supraventricular tachycardia; J98.11 Atelectasis; R78.81 Bacteremia; I50.32 Chronic diastolic (congestive) heart failure; L03.115 Cellulitis of right lower limb; L03.116 Cellulitis of left lower limb; I11.0 Hypertensive heart disease with heart failure; J44.9 Chronic obstructive pulmonary disease, unspecified; G47.33 Obstructive sleep apnea (adult) (pediatric); F32.9 Major depressive disorder, single episode, unspecified; E11.9 Type 2 diabetes mellitus without complications; B19.20 Unspecified viral hepatitis C without hepatic coma; F17.210 Nicotine dependence, cigarettes, uncomplicated; M54.5 Low back pain; G89.29 Other chronic pain; M25.50 Pain in unspecified joint; E66.9 Obesity, unspecified; N31.9 Neuromuscular dysfunction of bladder, unspecified; I45.10 Unspecified right bundle-branch block; Z88.2 Allergy status to sulfonamides; Z88.8 Allergy status to other drugs, medicaments and biological substances; Z79.899 Other long term (current) drug therapy; Z87.39 Personal history of other diseases of the musculoskeletal system and connective tissue; D64.9 Anemia, unspecified; Z79.82 Long term (current) use of aspirin; Z68.32 Body mass index [BMI] 32.0-32.9, adult; R33.9 Retention of urine, unspecified; B95.61 Methicillin susceptible Staphylococcus aureus infection as the cause of diseases classified elsewhere
CPT/HCPCS: 36415; 36416; 36569; 51701; 71045; 72158; 74177; 76942; 80048; 80053; 80202; 81003; 81015; 83605; 83735; 83880; 84100; 84145; 84484; 85025; 85652; 86140; 86705; 86706; 86709; 86780; 86803; 87040; 87077; 87149; 87186; 87340; 87389; 87522; 90471; 90686; 93005; 93010; 93306; 93613; 93621; 93623; 93653; 94640; 96361; 96365; 96375; A9577; C1730; C1769; G0008; J0690; J0692; J1644; J1650; J2001; J2250; J2270; J2405; J2543; J2704; J3010; J3370; J3490; J7050; J7614; J7620; Q9966; Q9967